=== PATIENT | female | born 1935 | race Caucasian/White ===

== ENCOUNTER 2018-03-21 14:26 | Emergency (ER) | payer OTHER ==
[2018-03-21] MEDS ORDERED: NS 1,000 ML IV ONE (15:27)
[2018-03-21 15:56] LABS: PLATELET COUNT 143 10^3/uL (150-400)
--- NOTE | 2018-03-21 16:11 | EDPHY ---
H & P Stated Complaint: lower abdominal pain, dark stools Time Seen by Provider: 03/21/18 15:27 HPI/ROS: CHIEF COMPLAINT: Lower abdominal pain, dark stools Limitations: Expressive aphasia, daughter provides a clinical history HISTORY OF PRESENT ILLNESS: 82-year-old female with expressive aphasia presents with lower abdominal pain and dark stools. Onset of lower abdominal pain yesterday, associated with 1 episode of dark stools and dizziness today. No fever, vomiting or diarrhea. The patient is unable to explain the character of the pain or if there are other associated symptoms. 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.htn ,breast ca 25 yrs ago,high chol, HTN , non verbal - Social History Smoking Status: Former smoker - Physical Exam Exam: General Appearance: Alert, pleasant Eyes: Pupils equal and round, no conjunctival pallor ENT, Mouth: Mucous membranes moist Neck: Normal inspection Respiratory: Lungs are clear to auscultation Cardiovascular: Regular rate and rhythm Gastrointestinal: Abdomen is soft, diffuse tenderness, especially left lower quadrant Rectal: Light brown stool, no gross blood, no fecal impaction Neurological: Alert, expressive aphasia, right-sided weakness Skin: Warm and dry Extremities: Nontender, no pedal edema Psychiatric: Unable to determine Constitutional: Initial Vital Signs Temperature (C) 37 C 03/21/18 14:31 Heart Rate 58 L 03/21/18 14:31 Respiratory Rate 18 03/21/18 14:31 Blood Pressure 156/77 H 03/21/18 14:31 O2 Sat (%) 96 03/21/18 14:31 O2 Delivery Mode Room Air Allergies/Adverse Reactions: Penicillins Allergy (Verified 03/21/18 14:30) Home Medications: Medication Instructions Recorded Aspirin [Aspirin 325 mg (*)] 325 mg PO DAILY 06/14/16 Atorvastatin Calcium [Lipitor 80 80 mg PO DAILY 06/14/16 mg] Carvedilol [Coreg (*)] 6.25 mg PO BIDMEAL 06/14/16 Cetirizine [ZyrTEC 10 mg (*)] 10 mg PO DAILY 06/14/16 Hydralazine HCl 100 mg PO 06/14/16 traZODone [traZODONE 50MG (*)] 50 mg PO HS 06/14/16 Cephalexin [Keflex (*)] 500 mg PO BID #10 cap 03/21/18 Medical Decision Making - Diagnostics EKG Interpretation: EKG interpreted by me reveals normal sinus rhythm, rate 56, no ST or T segment changes. Interpretation: Normal EKG Imaging Results: Imaging Impressions Abdomen CT 03/21/18 16:28 Impression: 1. Unusual enhancing gastric mucosa. Please see above 2. Possible distal sigmoid and rectal colitis. Results discussed with Kalpana Angelo at 5:51 PM. General information for patients regarding this examination can be found at [email or web address]. If you have questions or comments about this report, please contact me at (hospital) or [phone] (cell). Imaging: Discussed imaging studies w/ call or contact centre team leader Radiologist, I viewed and interpreted images myself ED Course/Re-evaluation: This patient presents with lower abdominal discomfort. Exam reveals left lower quadrant tenderness, concerning for diverticulitis. Stool is negative for occult blood. CT scan of the abdomen pelvis ordered. Urinalysis reveals UTI. Keflex 500 mg orally given and a urine culture was sent. CT scan reveals acute colitis of the sigmoid colon. Results discussed with the patient and her daughter. Abdominal exam remains benign. Tolerating oral fluids well and no evidence of GI hemorrhage. Warning signs discussed. Will follow up with Fatou Boyd. Differential Diagnosis: Differential diagnosis includes though it is not limited to appendicitis, cholecystitis, diverticulitis, pyelonephritis, bowel perforation, small bowel obstruction. - Data Points Laboratory Results: Laboratory Results 03/21/18 15:44 03/21/18 15:44 03/21/18 03/21/18 03/21/18 16:20 16:00 15:44 WBC RBC Hgb Hct MCV MCH MCHC RDW Plt Count MPV Neut % (Auto) Lymph % (Auto) [place] % (Auto) Eos % (Auto) Baso % (Auto) Nucleat RBC Rel Count Absolute Neuts (auto) Absolute Lymphs (auto) Absolute Monos (auto) Absolute Eos (auto) Absolute Basos (auto) Absolute Nucleated RBC Immature Gran % Immature Gran # Sodium Potassium Chloride Carbon Dioxide Anion Gap BUN Creatinine Estimated GFR Glucose Calcium Urine Color MAGAN Urine Appearance HAZY Urine pH 5.0 (5.0-7.5) Ur Specific [place] 1.028 (1.002-1.030) Urine Protein NEGATIVE (NEGATIVE) Urine Ketones NEGATIVE (NEGATIVE) Urine Blood NEGATIVE (NEGATIVE) Urine Nitrate NEGATIVE (NEGATIVE) Urine Bilirubin NEGATIVE (NEGATIVE) Urine Urobilinogen NEGATIVE EU EU (0.2-1.0) Ur Leukocyte Esterase TRACE H (NEGATIVE) Urine RBC 1-3 /hpf /hpf (0-3) Urine WBC 50-182 /hpf H /hpf (0-3) Ur Epithelial Cells TRACE /lpf /lpf (NONE-1+) Urine Mucus 2+ /lpf H /lpf (NONE-1+) Urine Glucose NEGATIVE (NEGATIVE) Stool Occult Bld Scrn NEGATIVE (NEGATIVE) Patient ABO/Rh O POSITIVE Antibody Screen NEGATIVE 03/21/18 03/21/18 15:44 15:44 WBC 8.64 10^3/uL 10^3/uL (3.80-9.50) RBC 4.98 10^6/uL 10^6/uL (4.18-5.33) Hgb 13.2 g/dL g/dL (12.6-16.3) Hct 40.1 % % (38.0-47.0) MCV 80.5 fL L fL (81.5-99.8) MCH 26.5 pg L pg (27.9-34.1) MCHC 32.9 g/dL g/dL (32.4-36.7) RDW 13.1 % % (11.5-15.2) Plt Count 143 10^3/uL L 10^3/uL (150-400) MPV 11.2 fL fL (8.7-11.7) Neut % (Auto) 76.5 % H % (39.3-74.2) Lymph % (Auto) 15.6 % % (15.0-45.0) [place] % (Auto) 5.9 % % (4.5-13.0) Eos % (Auto) 1.6 % % (0.6-7.6) Baso % (Auto) 0.2 % L % (0.3-1.7) Nucleat RBC Rel Count 0.0 % % (0.0-0.2) Absolute Neuts (auto) 6.60 10^3/uL H 10^3/uL (1.70-6.50) Absolute Lymphs (auto) 1.35 10^3/uL 10^3/uL (1.00-3.00) Absolute Monos (auto) 0.51 10^3/uL 10^3/uL (0.30-0.80) Absolute Eos (auto) 0.14 10^3/uL 10^3/uL (0.03-0.40) Absolute Basos (auto) 0.02 10^3/uL 10^3/uL (0.02-0.10) Absolute Nucleated RBC 0.00 10^3/uL 10^3/uL (0-0.01) Immature Gran % 0.2 % % (0.0-1.1) Immature Gran # 0.02 10^3/uL 10^3/uL (0.00-0.10) Sodium 140 mEq/L mEq/L (135-145) Potassium 3.9 mEq/L mEq/L (3.3-5.0) Chloride 106 mEq/L mEq/L (97-110) Carbon Dioxide 25 mEq/l mEq/l (22-31) Anion Gap 9 mEq/L mEq/L (8-16) BUN 16 mg/dL mg/dL (7-23) Creatinine 0.8 mg/dL mg/dL (0.6-1.0) Estimated GFR > 60 Glucose 91 mg/dL mg/dL (70-100) Calcium 9.1 mg/dL mg/dL (8.5-10.4) Urine Color Urine Appearance Urine pH Ur Specific [place] Urine Protein Urine Ketones Urine Blood Urine Nitrate Urine Bilirubin Urine Urobilinogen Ur Leukocyte Esterase Urine RBC Urine WBC Ur Epithelial Cells Urine Mucus Urine Glucose Stool Occult Bld Scrn Patient ABO/Rh Antibody Screen Medications Given: Discontinued Medications Cephalexin HCl (Keflex) 500 mg PO EDNOW ONE PRN Reason: Protocol Stop: 03/21/18 18:11 Last Admin: 03/21/18 18:16 Dose: 500 mg Sodium Chloride (Ns) 1,000 mls @ 0 mls/hr IV EDNOW ONE; Wide Open PRN Reason: Protocol Stop: 03/21/18 15:28 Last Admin: 03/21/18 15:44 Dose: 1,000 mls Departure - Departure Disposition: Home, Routine, Self-Care Clinical Impression: Colitis Urinary tract infection Qualifiers: Urinary tract infection type: acute cystitis Hematuria presence: without hematuria Qualified Code(s): N30.00 - Acute cystitis without hematuria Condition: Good Instructions: Urinary Tract Infection in Women (ED), Colitis (ED) Additional Instructions: Return for worsening symptoms or any concerns. Stay on a bland diet for 5-7 days. Referrals: Abigail Logan MD [Primary Care Provider] - 1-2 days without fail Aric Beyer MD [Medical Doctor] - As per Instructions (Call to make an appointment.) Prescriptions: Cephalexin [Keflex (*)] 500 mg PO BID #10 cap
[2018-03-21] MEDS ORDERED: IOPAMIDOL (ISOVUE-300) 100 ML BTL ONE (16:40)
[2018-03-21 17:25] VITALS: BP 162/81
--- NOTE | 2018-03-21 17:59 | CPEKG ---
Test Reason : OPEN Blood Pressure : / mmHG Vent. Rate : 056 BPM Atrial Rate : 056 BPM P-R Int : 134 ms QRS Dur : 097 ms QT Int : 464 ms P-R-T Axes : 023 -07 047 degrees QTc Int : 448 ms Sinus rhythm Confirmed by Kalpana Angelo ([id number]) on 03/21/2018 5:59:34 PM Referred By: Confirmed By:Kalpana Angelo
[2018-03-21] MEDS ORDERED: CEPHALEXIN 500 MG CAP PO ONE (18:10)
== END 2018-03-21 17:20 | disposition home or self-care (01) ==
DX: K52.9 Noninfective gastroenteritis and colitis, unspecified (principal); N30.00 Acute cystitis without hematuria; Z85.3 Personal history of malignant neoplasm of breast; Z87.891 Personal history of nicotine dependence; I69.920 Aphasia following unspecified cerebrovascular disease
CPT/HCPCS: 74177; 93005; 96360; 99285; Q9967

== ENCOUNTER 2018-04-06 16:04 | Observation (INO) | payer OTHER ==
--- NOTE | 2018-04-06 16:48 | EDPHY ---
HPI/HX/ROS/PE/MDM Narrative: CHIEF COMPLAINT: Abdominal pain HISTORY OF PRESENT ILLNESS: This patient is an 82-year-old female with history of CVA and resultant right- sided weakness and aphasia arriving with her daughter for evaluation of abdominal pain. For several weeks, she has had severe abdominal pain and incontinence of bowels or urgency to have a bowel movement every time she eats. She was evaluated in this emergency department about one week ago for similar symptoms and CT at that time showed inflammation of her intestines. She had a sigmoidoscopy on Thursday at [facility] (results pending). She also had a recent antibiotic treatment with Keflex for UTI. Today, she was going to have a stool test for c-difficile, but she has had such severe pain today that she has not eaten. She has taken Tylenol and tramadol for pain relief. Denies known fever. Endorses nausea. Denies dysuria. She has recently had difficulty with dysphagia and frequently chokes and spits up food. She has followed up regarding this and plan is for barium swallow and endoscopy. Her daughter has noticed frequent coughing. No chills, chest pain, shortness of breath, palpitations, urinary complaints, headache, lightheadedness. HPI primarily obtained through patient's daughter at bedside due to patient's residual deficits from prior CVA 01/2016. REVIEW OF SYSTEMS: A comprehensive 10 system review of systems is otherwise negative aside from elements mentioned in the history of present illness and medical decision making. PAST MEDICAL HISTORY: History of CVA 01/2016, resultant right-sided weakness, aphasia. Hysterectomy. SOCIAL HISTORY: Daughter at bedside. Lives in [place]. Retired. VITAL SIGNS: Reviewed by me GENERAL: Well-developed, well-nourished, resting comfortably in no respiratory distress. HEENT: Atraumatic. Eyes: No icterus, no injection. Mouth: moist mucous membranes. No erythema or lesions. Neck: supple with no adenopathy. LUNGS: Clear to auscultation bilaterally, no wheezes, rhonchi or rales. CARDIAC: Regular rate and rhythm, no rubs, murmurs or gallops. ABDOMEN: Lower abdominal tenderness, LLQ>RLQ. Soft, nondistended. BACK: No CVA tenderness. EXTREMITIES: Weakness and contracture of RUE. No trauma. No edema. NEURO: Alert. Aphasia and right-sided deficits secondary to prior CVA two years ago (01/2016). SKIN: Warm and dry, no rash. PSYCHIATRIC: Normal mentation, no agitation. Portions of this note were transcribed by a medical collector. I personally performed a history, physical exam, medical decision making, and confirmed accuracy of information the transcribed note. ED Course: 82 y/o female with history of CVA and recent diagnosis of colitis by CT presents with abdominal pain and frequent, uncontrollable bowel movements. Exam and history are somewhat limited due the patient's aphasia. Plan for repeat CT. Plan for labs including CBC, chemistries, UA, stool culture. 17:[address] Washington, radiologist. CT abdomen/pelvis shows evidence of worsening colitis, possibly consistent with c-difficile. Plan to administer 50mcg IV fentanyl for pain relief. 19:05 Reassessed. Plan to admit for worsening colitis, abdominal pain. She and her daughter are comfortable with this plan. 19:16 Consulted with hospitalist service. Dr. Hawk accepts admission for abdominal pain, colitis, possible c-difficile. MDM: Diff dx considered included but not limited to cholecystitis, gastritis, pancreatitis, bowel obstruction, colitis, diverticulitis, kidney stones, urinary tract infections and other causes. - Data Points Imaging Results: Imaging Impressions Abdomen CT 04/06/18 17:06 Impression: 1. Worsening colitis extending from the anal verge to the hepatic flexure is worse since two weeks prior. Query Clostridium difficile colitis or other infectious etiology. 2. No focal diverticulitis, abscess, or bowel obstruction. Findings discussed with Emergency Department physician, Shivani Raman M.D., on April 06, 2018 at 1749. Imaging: Discussed imaging studies w/ trade mark attorney Radiologist Laboratory Results: Laboratory Results 04/06/18 16:25 04/06/18 16:25 04/06/18 04/06/18 04/06/18 18:30 16:25 16:25 WBC 7.00 10^3/uL 10^3/uL (3.80-9.50) RBC 5.06 10^6/uL 10^6/uL (4.18-5.33) Hgb 13.4 g/dL g/dL (12.6-16.3) Hct 40.2 % % (38.0-47.0) MCV 79.4 fL L fL (81.5-99.8) MCH 26.5 pg L pg (27.9-34.1) MCHC 33.3 g/dL g/dL (32.4-36.7) RDW 13.2 % % (11.5-15.2) Plt Count 172 10^3/uL 10^3/uL (150-400) MPV 11.8 fL H fL (8.7-11.7) Neut % (Auto) 70.3 % % (39.3-74.2) Lymph % (Auto) 19.1 % % (15.0-45.0) [place] % (Auto) 8.0 % % (4.5-13.0) Eos % (Auto) 1.9 % % (0.6-7.6) Baso % (Auto) 0.4 % % (0.3-1.7) Nucleat RBC Rel Count 0.0 % % (0.0-0.2) Absolute Neuts (auto) 4.92 10^3/uL 10^3/uL (1.70-6.50) Absolute Lymphs (auto) 1.34 10^3/uL 10^3/uL (1.00-3.00) Absolute Monos (auto) 0.56 10^3/uL 10^3/uL (0.30-0.80) Absolute Eos (auto) 0.13 10^3/uL 10^3/uL (0.03-0.40) Absolute Basos (auto) 0.03 10^3/uL 10^3/uL (0.02-0.10) Absolute Nucleated RBC 0.00 10^3/uL 10^3/uL (0-0.01) Immature Gran % 0.3 % % (0.0-1.1) Immature Gran # 0.02 10^3/uL 10^3/uL (0.00-0.10) Sodium 139 mEq/L mEq/L (135-145) Potassium 3.3 mEq/L mEq/L (3.3-5.0) Chloride 105 mEq/L mEq/L (97-110) Carbon Dioxide 28 mEq/l mEq/l (22-31) Anion Gap 6 mEq/L L mEq/L (8-16) BUN 16 mg/dL mg/dL (7-23) Creatinine 0.8 mg/dL mg/dL (0.6-1.0) Estimated GFR > 60 Glucose 89 mg/dL mg/dL (70-100) Calcium 8.8 mg/dL mg/dL (8.5-10.4) Urine Color YELLOW Urine Appearance HAZY Urine pH 6.0 (5.0-7.5) Ur Specific [place] 1.020 (1.002-1.030) Urine Protein TRACE H (NEGATIVE) Urine Ketones TRACE H (NEGATIVE) Urine Blood NEGATIVE (NEGATIVE) Urine Nitrate NEGATIVE (NEGATIVE) Urine Bilirubin NEGATIVE (NEGATIVE) Urine Urobilinogen 0.2 EU EU (0.2-1.0) Ur Leukocyte Esterase TRACE H (NEGATIVE) Urine RBC NONE SEEN /hpf /hpf (0-3) Urine WBC 0-1 /hpf /hpf (0-3) Ur Epithelial Cells 1+ /lpf /lpf (NONE-1+) Amorphous Sediment 1+ /hpf /hpf (NONE-1+) Urine Bacteria TRACE /hpf H /hpf (NONE SEEN) Urine Mucus 4+ /lpf H /lpf (NONE-1+) Urine Glucose NEGATIVE (NEGATIVE) Medications Given: Potassium Chloride/Dextrose/Sod Cl (D5w 1/2 Ns W/ 20 Kcl/L) 1,000 mls @ 75 mls/ hr IV CONT LISSETH Stop: 10/03/18 20:29 Last Admin: 04/06/18 23:24 Dose: 1,000 mls Discontinued Medications Fentanyl (Sublimaze) 50 mcg IVP EDNOW ONE Stop: 04/06/18 19:09 Last Admin: 04/06/18 19:17 Dose: Not Given Sodium Chloride (Ns) 1,000 mls @ 0 mls/hr IV ONCE ONE; Wide Open PRN Reason: Protocol Stop: 04/06/18 18:36 Last Admin: 04/06/18 19:14 Dose: 1,000 mls General Time Seen by Provider: 04/06/18 16:24 Initial Vital Signs: Initial Vital Signs Temperature (C) 36.7 C 04/06/18 16:09 Heart Rate 65 04/06/18 16:09 Respiratory Rate 18 04/06/18 16:09 Blood Pressure 133/57 H 04/06/18 16:09 O2 Sat (%) 95 04/06/18 16:09 O2 Delivery Mode Room Air Allergies/Adverse Reactions: egg Allergy (Verified 04/10/18 21:21) Unknown Penicillins Allergy (Verified 04/11/18 10:55) Unknown shellfish derived Allergy (Verified 04/11/18 10:55) Unknown Home Medications: Medication Instructions Recorded Aspirin [Aspirin 325 mg (*)] 325 mg PO HS 06/14/16 Cetirizine [ZyrTEC 10 mg (*)] 10 mg PO DAILY PRN 06/14/16 Atorvastatin Calcium [Lipitor 40 40 mg PO HS 04/06/18 mg (*)] Escitalopram Oxalate [Lexapro] 20 mg PO HS 04/06/18 Acetaminophen [Tylenol 325mg (*)] 650 mg PO Q6 PRN tab 04/08/18 Vancomycin HCl 250 mg PO QID #40 capsule 04/08/18 Carvedilol [Coreg (*)] 6.25 mg PO DAILY 04/11/18 Hyoscyamine Sulfate [Levsin, 0.125 mg SL Q4H PRN 04/11/18 Hyomax-Sl 0.125 mg (*)] hydrALAZINE [Apresoline] 25 mg PO QIDMEAL 04/11/18 Departure - Departure Disposition: [facility] In[facility] Acute Clinical Impression: Colitis, Possible c-difficile Abdominal pain Qualifiers: Abdominal location: generalized Qualified Code(s): R10.84 - Generalized abdominal pain Condition: Good Report Scribed for: Shivani Raman Report Scribed by: Amita Greenwood Date of Report: 04/06/18 Time of Report: 19:58
[2018-04-06 17:01] LABS: PLATELET COUNT 172 10^3/uL (150-400)
[2018-04-06] MEDS ORDERED: IOPAMIDOL (ISOVUE-300) 100 ML BTL ONE (17:22)
[2018-04-06] MEDS ORDERED: NS 1,000 ML IV ONE (18:35)
[2018-04-06] MEDS ORDERED: fentaNYL 100 MCG/2 ML INJ IVP ONE (19:08)
[2018-04-06] MEDS ORDERED: ONDANSETRON 4 MG/2 ML VIAL IVP PRN (20:18)
[2018-04-06] MEDS ORDERED: oxyCODONE IR 5 MG TAB PO PRN (20:18)
[2018-04-06] MEDS ORDERED: ACETAMINOPHEN 325 MG TAB PO PRN (20:18)
--- NOTE | 2018-04-06 20:32 | GHP ---
DATE OF ADMISSION: 04/06/2018 CHIEF COMPLAINT: Abdominal pain and diarrhea. HISTORY OF PRESENT ILLNESS: This is an 82-year-old female with history of expressive aphasia after a CVA in 2016 who has been having diarrhea and abdominal pain over the past few weeks. She was seen i n the emergency room on 03/21/2018, for lower abdominal pain where a CT scan was done and she was ult imately diagnosed with a urinary tract infection and started on cephalexin. The CT scan did show acu te colitis of the sigmoid colon. Subsequently she was referred to Gastroenterology where she had a s igmoidoscopy done last Thursday. Over the past few days, she has been unable to eat since every time she eats she has diarrhea. She d enies any fevers or chills. She denies any vomiting. Today, she had excruciating lower quadrant abd ominal pain which brought her to the emergency department. PAST MEDICAL HISTORY: 1. CVA in January of 2016 with residual speech deficits as well as right-sided weakness. 2. Breast cancer 25 years ago. 3. Hypercholesterolemia. 4. Hypertension. PAST SURGICAL HISTORY: Denies. HOME MEDICATIONS: Reviewed. Refer to [employer] for details. ALLERGIES: Penicillin. SOCIAL HISTORY: The patient lives in [facility] with her family. She is a former smoker. She de nies any alcohol or illicit drug use. FAMILY HISTORY: Reviewed and noncontributory. REVIEW OF SYSTEMS: Comprehensive 10-point review of systems was done and is negative, except for as mentioned in HPI. PHYSICAL EXAM: VITAL SIGNS: Blood pressure 142/68, pulse is 70, respiratory rate 20, O2 saturation 95% on room air. Temperature afebrile. GENERAL: No acute distress. HEAD: Normocephalic, atraumat ic. EYES: PERRLA. Sclerae anicteric. MOUTH: Moist mucous membranes. NECK: Supple. No lymphade nopathy. CARDIOVASCULAR: S1, S2. No murmurs, rubs, clicks, gallops. No JVD. No lower extremity e gary. PULMONARY: Lungs are clear. No wheezes, rales, or rhonchi. ABDOMEN: There is some tenderne ss to deep palpation in the left lower quadrant. Otherwise soft. Bowel sounds are hyperactive. EXT REMITIES: No clubbing or cyanosis. NEURO: Speech is not fluent. She has right-sided weakness. SK IN: Clear. No rashes. DIAGNOSTICS: WBC 7, hemoglobin 13.4, hematocrit 40.2, platelets 172. Sodium 139, potassium 3.3, chl oride 105, CO2 28, BUN 16, creatinine 0.8, glucose 89. Stool occult blood from 03/21/2018, was negat baldemar. CT of the abdomen done today shows worsening colitis extending from the anal verge to the hepat ic flexure. There is no focal diverticulitis, abscess, or bowel obstruction. ASSESSMENT AND PLAN: This is an 82-year-old female, with reported chronic diarrhea presenting with: 1. Left lower quadrant abdominal pain and worsening diarrhea in the setting of a CT consistent with worsening colitis. Plan: At this time, a stool PCR pathogen panel is pending. Will defer starting empiric antibiotics until these results are back. I have a call in to Dr. Walker from GI of the [facility] to see if he has any further records or results from her recent endoscopy done last week. 2. Recently treated urinary tract infection with Keflex. Plan: It is possible that the Keflex may have precipitated a bout of C difficile colitis. Will hold Keflex for now. The patient will be placed in observation. The patient requests to be DNR status. /[id number]/MODL
[2018-04-06] MEDS: D5W 1/2 NS W/ 20 KCl/L 1,000 ML IV SCH (23:24)
[2018-04-07 05:35] LABS: PLATELET COUNT 150 10^3/uL (150-400)
[2018-04-07] MEDS ORDERED: CETIRIZINE 10 MG TAB PO PRN (06:21)
[2018-04-07] MEDS: ENOXAPARIN 40 MG/0.4 ML SYR SC SCH (09:35)
--- NOTE | 2018-04-07 10:24 | GCON ---
GASTROENTEROLOGY INPATIENT CONSULTATION DATE OF CONSULTATION: 04/07/2018 I was kindly requested to see the patient by Dr. Sigifredo Hawk in consultation for a chief complaint of diarrhea. She is an 82-year-old white female, who began to have the above several weeks ago. She has diarrhea every time she tries to eat, and as a result, has had decreased oral intake. With the diarrhea, she has had some crampy lower quadrant abdominal pain. She presented to the emergency department, and was admitted. On March 21, she presented to the emergency department with lower abdominal pain, and was diagnosed with a UTI, and started on cephalexin. A CT scan was done during that presentation, which showed some possible inflammation of the left colon. On September 02, she underwent a flexible sigmoidoscopy by my partner, Dr. Jorge Ravi, where she received 100 mcg of fentanyl and 4 mg of Versed. Scattered erythema, inflammation, and exudate were seen in the rectum and sigmoid. Biopsies were performed. I spoke with the pathologist today, and she states they are most consistent with an acute infectious etiology. They are not consistent with inflammatory bowel disease, microscopic colitis, etc. No pseudomembranes, etc., to suggest C difficile. PAST MEDICAL HISTORY: 1. As above. 2. CVA in January of 2016, leaving her with some residual speech deficit as well as right-sided weakness. 3. Breast cancer 25 years ago. 4. Elevated cholesterol. 5. Hypertension. 6. Otherwise, noncontributory inpatient. INPATIENT MEDICATIONS: Include IV fluids, Lipitor, Lovenox, and Lexapro. SOCIAL HISTORY: She denies alcohol. She is a DNR. She lives in [facility] with her family. FAMILY HISTORY: Negative for similar diarrhea. REVIEW OF SYSTEMS: Positive pertinent review of systems as per HPI. Otherwise , complete review of systems is negative. PHYSICAL EXAM: CONSTITUTIONAL: Nontoxic-appearing woman. VITAL SIGNS: Stable. SKIN: Warm, dry. EYES: Pupils equal, round and reactive to light and accommodation. EARS, NOSE, MOUTH, AND THROAT: Oropharynx without masses, moist mucosa. CARDIOVASCULAR: Normal S2. Normal PMI. RESPIRATORY: Lungs clear to auscultation and percussion anteriorly. GASTROINTESTINAL: Abdomen soft, without masses felt. NEUROLOGIC: Right-sided weakness, with expressive aphasia. PSYCHIATRIC: Orientation, insight appear appropriate. MUSCULOSKELETAL: Right-sided weakness, normal station. LABORATORIES: Include a repeat CT scan of the abdomen and pelvis, which shows colonic wall thickening from the anal verge to the hepatic flexure, which could be consistent with inflammation. It is somewhat worse than her prior CT. Hematocrit 37.8%. Platelet count 150,000. Urinalysis negative. Normal liver function tests. Normal basic metabolic panel. ASSESSMENT: Diarrhea, with some secondary crampy lower abdominal pain. This certainly represents a subacute infectious colitis. In turn, with the duration being several weeks, almost certainly due to a community-acquired virus. Prolonged bacterial colitis is possible, but less likely. C difficile is also possible, but also much less likely. No evidence based on her history, flexible sigmoidoscopy and pathology of ulcerative colitis, Crohn's, microscopic colitis, etc. PLAN: 1. Supportive care, including IV fluids. 2. Time. 3. Agree with light diet for now. If she tolerates, can advance to a cardiac diet, with low dairy, low fiber. 4. Agree with stool for GI pathogen, including C difficile. 5. Will begin routine Imodium, 2 tablets twice a day; hold for constipation. Thank you for allowing me to help in the management of this patient. /[id number]/MODL MTDD
--- NOTE | 2018-04-07 10:48 | HOSPPROG ---
Hospitalist Progress Note Assessment/Plan: Constantin is an 82 y/o who presented to the ER with left lower quadrant abdominal pain, diarrhea. Today is my first encounter with the patient, chart reviewed. *left lower quadrant abdominal pain, possibly a subacute infectious colitis -no stool studies at this time -CT of the abdomen shows worsening colitis extending from the anal verge to the hepatic flexure. There is no focal diverticulitis, abscess, or bowel obstruction. -appreciate GI seeing her -light diet for now, low fiber -she had a flexible sigmoidoscopy in the past and had no pathology of ulcerative colitis, Crohn's, ec -will advance her diet slowly to see how she does -has had no further episodes w diarrhea since being admitted *hx of CVA w difficulty w speech -concerns w swallowing -ST to see -PT & OT in addition *recent UTI -was treated w Keflex -initial concern was poss c diff, but no diarrhea at this time *Plan: will check on her this afternoon to see if she is eating and drinking. Will see how her abdominal pain is. J Subjective: Constantin grimaces and nods when her left lower quadrant is palpated. Her speech is garbled but communicates well w her eyes and non verbally. Objective: Vital Signs Temp Pulse Resp BP Pulse Ox 36.7 C 53 L 14 112/57 L 95 04/07/18 08:00 04/07/18 08:00 04/07/18 08:00 04/07/18 08:00 04/07/18 08:00 Laboratory Results 04/07/18 04:59 04/07/18 04:59 04/06/18 04/07/18 04/08/18 05:59 05:59 05:59 Intake Total 1485 Balance 1485 - Physical Exam Constitutional: uncomfortable Eyes: PERRL Ears, Nose, Mouth, Throat: hard of hearing Cardiovascular: regular rate and rhythym Respiratory: no respiratory distress Gastrointestinal: normoactive bowel sounds, tenderness (llq and rlq) Skin: warm Musculoskeletal: generalized weakness Psychiatric: interacting appropriately ICD10 Worksheet Patient Problems: Problems Problem Status Onset Abdominal pain Acute Colitis Acute
--- NOTE | 2018-04-07 17:19 | ASMTCMCOM ---
CM Note CM Note Notes: Pt is a 82 y/o female admitted for abdominal pain and diarrhea. Pt had a CVA in January of 2016 which left her w/ speech deficits as well as right sided weakness. Pt lives w/ her family in [facility]. GI has been consulted. Therapies have been ordered and awaiting recommendations. Needs are TBD at this time. CM to follow. Plan: TBD Date Signed: 04/07/2018 10:37 AM Electronically Signed By:KELBY Carrillo
[2018-04-07] MEDS: LOPERAMIDE HCL 2 MG CAP PO SCH ×2 (17:49→21:57)
[2018-04-07] MEDS ORDERED: ESCITALOPRAM OXALATE 10 MG TAB PO SCH (21:00)
[2018-04-07] MEDS ORDERED: ATORVASTATIN CALCIUM 40 MG TAB PO SCH (21:00)
[2018-04-07] MEDS: D5W 1/2 NS W/ 20 KCl/L 1,000 ML IV SCH (23:30)
[2018-04-08] MEDS ORDERED: LOPERAMIDE HCL 2 MG CAP PO PRN (08:17)
--- NOTE | 2018-04-08 08:20 | SOAPPROG ---
SOAP Progress Note Assessment/Plan: Assessment/Plan: Diarrhea, almost certainly due to c. diff. Only one b.m. yesterday, without imodium. - agree with yosvany; of note, once completed therapy, she does not need a repeat c. diff to insure eradication (will stay positive for quite some time) - change imodium to prn Will sign off; please call if we can be of further help in the future [phone]). Thanks! 04/08/18 15:15 Subjective: cc: diarrhea Just one b.m./last 24 hrs. No rigors, chills, sweats. Objective: Vital Signs Temp Pulse Resp BP Pulse Ox 36.9 C 58 L 14 134/63 H 89 L 04/08/18 07:40 04/08/18 07:40 04/08/18 07:40 04/08/18 07:40 04/08/18 07:40 Microbiology 04/07/18 20:32 Gastrointestinal Tract Panel (PCR) - Final Stool Clostridium Difficile Detected Laboratory Results 04/07/18 04:59 04/07/18 04:59 04/07/18 04/08/18 04/09/18 05:59 05:59 05:59 Intake Total 1485 300 Output Total 60 Balance 1485 240 c. diff positive. Physical Exam - Physical Exam General Appearance: WD/WN, alert, no apparent distress EENT: PERRL/EOMI, normal ENT inspection, pharynx normal, TMs normal Neck: non-tender, full range of motion, supple, normal inspection Respiratory: chest non-tender, lungs clear, normal breath sounds Cardiac/Chest: normal peripheral pulses, regular rate, rhythm Peripheral Pulses: 2+: carotid (R), carotid (L), femoral (R), femoral (L), dorsalis-pedis (R), dorsalis-pedis (L) Abdomen: normal bowel sounds, non-tender, soft Pelvic Exam: deferred Rectal: deferred Back: Normal inspection Skin: normal color, warm/dry Lymphatic: no adenopathy Extremities: normal range of motion, non-tender, normal inspection, normal capillary refill Neuro/Psych: no motor/sensory deficits, alert, normal mood/affect, oriented x 3 ICD10 Worksheet Patient Problems: Problems Problem Status Onset Abdominal pain Acute Colitis Acute
[2018-04-08] MEDS: ENOXAPARIN 40 MG/0.4 ML SYR SC SCH (08:33)
--- NOTE | 2018-04-08 10:01 | PDIAF ---
- Diagnosis Diagnosis: cdiff Code Status: Do Not Resuscitate - Medication Management Discharge Medications: Medications to Continue on Transfer Aspirin [Aspirin 325 mg (*)] 325 mg PO HS 06/14/16 [Last Taken Unknown] Cetirizine [ZyrTEC 10 mg (*)] 10 mg PO DAILY PRN 06/14/16 [Last Taken Unknown] Atorvastatin Calcium [Lipitor 40 mg (*)] 40 mg PO HS 04/06/18 [Last Taken Unknown] Escitalopram Oxalate [Lexapro] 20 mg PO HS 04/06/18 [Last Taken Unknown] Acetaminophen [Tylenol 325mg (*)] 650 mg PO Q6 PRN tab 04/08/18 [Last Taken Unknown] Vancomycin [Vancocin Oral Liquid] 250 mg PO QID #40 cap 04/08/18 [Last Taken Unknown] Discharge Medications: Refer to the Discharge Home Medication list for PRN reason. PICC Care - Routine: N/A - Orders Services needed: Home Care, Registered Nurse, Physical Therapy, Occupational Therapy Home Care Face to Face: I certify that this patient was under my care and that I had the required [id number] encounter meeting the encounter requirements on the discharge day. My findings support the fact that the patient is homebound as defined in Home Care Face to Face Continued: CMS Chapter 7 Medicare Benefits Manual 30.1.1 , The condition of the patient is such that there exists a normal inability to leave home and consequently, leaving home would require a considerable and taxing effort. Isolation Type: CDIFF Isolation Diet Recommendation: no restrictions on diet Diet Texture: Regular Texture Diet, Thin Liquids, Meds Whole in Puree - Labs/Radiology BMP Date: 04/12/18 - Follow Up Care Current Providers and Referrals: Abigail Logan MD [Primary Care Provider] - As per Instructions
[2018-04-08 11:22] VITALS: BP 125/65
--- NOTE | 2018-04-08 11:23 | ASMTLACE ---
LACE Length of stay for Answers: 2 days current admission Acuity / Level of Answers: Yes Care: Did the patient have an inpatient admission? Comorbidities - select Answers: Cerebrovascular disease all that apply (CVA, TIA, aneurysms, vasc ular dementia) Other Notes: HTN, HLD, # of Emergency department Answers: 3-4 visits in the last 6 months Score: 10 Date Signed: 04/08/2018 11:18 AM Electronically Signed By:Trisha Galvez
--- NOTE | 2018-04-08 11:53 | ASMTDCNOTE ---
Case Management Discharge Discharge Order Complete? Answers: Yes Patient to Obtain Answers: via Family Medications Transportation Arranged Answers: Family/Friends Agency/Facility Transfer Answers: Yes Report Printed & Faxed to Receiving Agency Family Notified Answers: Yes Notes: Daughter Discharge Comments Notes: Pt to discharge home with [facility] RN, PT, OT support. Pt's home address is [address] [place] [address]. [address] [place] [address]. Apartment is difficult to find. Daughter Aliza states [facility] should call her for directions. GPS will get you lost. Her number is [phone]. Family is aware that [facility] does not have staff available until Thursday and is fine with that scenario. No further CM needs noted at this time. Date Signed: 04/08/2018 11:46 AM Electronically Signed By:Trisha Galvez
--- NOTE | 2018-04-08 11:53 | ASDISCHSUM ---
Discharge Information Plan Status:Home with Home Health Medically Cleared to Leave:04/08/2018 Discharge Date:04/08/2018 CM D/C Disposition:Home Health Service ADT D/C Disposition:Home Health Service Projected Discharge Date:04/08/2018 11:00 AM Transportation at D/C:Family Discharge Delay Reason: Follow-Up Date:04/08/2018 11:00 AM Discharge Slot: Final Diagnosis:c diff Placement Information Referral Type:*Home Health Care Services Referral ID:[id number] Provider Name:[facility] Address 1:[address] [facility] [address] Address 2: City:[place] Selection Factors: State:[place] Patient Contact Information Contact Name:GABRIELLE Relationship:Daughter Address:[address] Work Phone: City:[place] Alternate Phone: State/Zip Code:[place] [address] Email: Financial Information Financial Class:Medicare Advantage Plans Primary Plan Desc:[employer] MED[employer]ARE ADV Primary Plan Number:[id number] Secondary Plan Desc: Secondary Plan Number: Assessment Information [facility] CM Progress Note CM Note CM Note Notes: Pt is a 82 y/o female admitted for abdominal pain and diarrhea. Pt had a CVA in January of 2016 which left her w/ speech deficits as well as right sided weakness. Pt lives w/ her family in [facility]. GI has been consulted. Therapies have been ordered and awaiting recommendations. Needs are TBD at this time. CM to follow. Plan: TBD Date Signed: 04/07/2018 10:37 AM Electronically Signed By:KELBY Carrillo LACE LACE Length of stay for Answers: 2 days current admission Acuity / Level of Answers: Yes Care: Did the patient have an inpatient admission? Comorbidities - select Answers: Cerebrovascular disease all that apply (CVA, TIA, aneurysms, vasc ular dementia) Other Notes: HTN, HLD, # of Emergency department Answers: 3-4 visits in the last 6 months Score: 10 Date Signed: 04/08/2018 11:18 AM Electronically Signed By:Trisha Galvez Case Management Discharge Plan Note Case Management Discharge Discharge Order Complete? Answers: Yes Patient to Obtain Answers: via Family Medications Transportation Arranged Answers: Family/Friends Agency/Facility Transfer Answers: Yes Report Printed & Faxed to Receiving Agency Family Notified Answers: Yes Notes: Daughter Discharge Comments Notes: Pt to discharge home with [facility] RN, PT, OT support. Pt's home address is [address] [place] [address] [address] [place] [address]. Apartment is difficult to find. Daughter Aliza states [facility] should call her for directions. GPS will get you lost. Her number is [phone]. Family is aware that [facility] does not have staff available until Thursday and is fine with that scenario. No further CM needs noted at this time. Date Signed: 04/08/2018 11:46 AM Electronically Signed By:Trisha Galvez Intervention Information
[2018-04-08] MEDS ORDERED: VANCOMYCIN 125 MG/2.5 ML UDL PO SCH (12:00)
--- NOTE | 2018-04-08 12:34 | ASMTCMCOM ---
CM Note CM Note Notes: Pt's daughter significant emotional distress upon discharge explaining that pt has behavioral tantrums when she does not get her way and dtr is increasingly unable to cope with pt's outbursts and obstinance. CM directed dtr to Gosia Dominguez RN, clinical coordinator at the pt's primary care office and also left a message for Gosia Dominguez RN regarding family's need for social work intervention, behavior plan help, day programs, and private duty care. CM also left a message for dtr including contact info for private duty agencies. No further CM needs noted at this time. Date Signed: 04/08/2018 12:20 PM Electronically Signed By:Trisha Galvez
--- NOTE | 2018-04-08 12:42 | GDS ---
DISCHARGE DIAGNOSES: Clostridium difficile. CONSULTATIONS: Dr. Tovar of Gastroenterology. STUDIES AND PROCEDURES DONE: CT of the abdomen. PHYSICAL EXAM: GENERAL: The patient is alert. VITAL SIGNS: Afebrile at 36.8, pulse 55. Respirato ry rate is 12. Blood pressure is 125/65. She is saturating 91% on room air. I have seen and evaluated the patient on the day of discharge. HOSPITAL COURSE: The patient is an 82-year-old female who presents to the hospital with complaints o f quadrant pain. She was evaluated and diagnosed with: 1. Left lower quadrant abdominal pain. This is in the setting of Clostridium difficile. She did re ceive a consultation from Gastroenterology. She has been initiated on oral vancomycin and will diane nue this in the outpatient setting. 2. Diarrhea; this has improved. 3. History of cerebrovascular accident. The patient is at her baseline with regard to this. 4. Recent urinary tract infection. She was treated with Keflex in the outpatient setting, with no s igns of further infectious process. DISPOSITION: The patient will be discharged home with her daughter and home health care. There are no pending studies. DISCHARGE MEDICATIONS: Please refer to EMR form. I have provided the patient a prescription for van comycin. I have not adjusted any of her other previously prescribed home medications to the best of my knowledge. I spent greater than 35 minutes in the care, coordination, and management of the patient's dispositio n. /[id number]/MODL
== END 2018-04-08 12:10 | disposition home health service (06) ==
LOC: INTOOBSV 19:08 → OBSVTOIN 19:08 → F3E 20:15
PROVIDERS: ADMIT Family Medicine; ATTEND Family Medicine
DX: A04.72 Enterocolitis due to Clostridium difficile, not specified as recurrent (principal); E86.9 Volume depletion, unspecified; I69.320 Aphasia following cerebral infarction; I69.351 Hemiplegia and hemiparesis following cerebral infarction affecting right dominant side; Z85.3 Personal history of malignant neoplasm of breast; I10 Essential (primary) hypertension; E78.00 Pure hypercholesterolemia, unspecified; Z66 Do not resuscitate
CPT/HCPCS: 74177; 92523; 92610; 96360; 97162; 97166; 97530; 99285; G0378; G8978; G8979; G8980; G8987; G8988; G8996; G8997; G8998; G9162; G9163; J1650; Q9967

== ENCOUNTER 2018-04-10 21:13 | Inpatient (IN) | payer OTHER ==
--- NOTE | 2018-04-10 22:02 | EDPHY ---
H & P Stated Complaint: Pt is taking vancomycin and now having redness and right cheek swelling Time Seen by Provider: 04/10/18 22:02 HPI/ROS: HPI CHIEF COMPLAINT: Facial redness, swelling, pain HISTORY OF PRESENT ILLNESS: 82-year-old female, presents emergency room with right-sided facial swelling, redness and pain. This progressively started yesterday and has progressed over the past 24 hr. Getting worse. No fever. She is currently on oral vancomycin for C diff. Past Medical History: Current active C diff on oral vancomycin. History of CVA , recurrent UTI. Past Surgical History: No recent surgery Social History: Lives locally, family at bedside. Family History: Noncontributory ROS REVIEW OF SYSTEMS: 10 Systems were reviewed and negative with the exception of the elements mentioned in the history of present illness. Exam Constitutional triage nursing summary reviewed, vital signs reviewed, awake/ alert. Eyes normal conjunctivae and sclera, EOMI, PERRLA. HENT face: Right-sided facial redness and swelling consistent with most likely has cellulitis, normal inspection, atraumatic, moist mucus membranes, no epistaxis, neck supple/ no meningismus, no raccoon eyes. Respiratory clear to auscultation bilaterally, normal breath sounds, no respiratory distress, no wheezing. Cardiovascular rate normal, regular rhythm, no murmur, no edema, distal pulses normal. Gastrointestinal soft, non-tender, no rebound, no guarding, normal bowel sounds, no distension, no pulsatile mass. Genitourinary no CVA tenderness. Musculoskeletal no midline vertebral tenderness, full range of motion, no calf swelling, no tenderness of extremities, no meningismus, good pulses, neurovascularly intact. Skin pink, warm, & dry, no rash, skin atraumatic. Neurologic awake, alert and oriented x 3, AAOx3, moves all 4 extremities equally, motor intact, sensory intact, CN II-XII intact, normal cerebellar, normal vision, normal speech. Psychiatric normal mood/affect. Heme/Lymph/Immune no lymphadenopathy. Differential Diagnosis: Includes but is not limited to in a particular order facial cellulitis, bacteremia, sepsis Medical Decision Making: Plan for this patient IV establishment, blood cultures , lactic acid, CBC chemistry, CT facial scan with IV contrast. Re-evaluation: CT FACE with IV contrast show Facial cellulitis. No abscess. Called to me Dr. Street. This shows facial cellulitis on C T. But no abscess. This patient need to be admitted to the hospitalist service given the history of generalized weakness, dehydration, acute diarrhea with C diff, and severe electrolyte disturbance including hypokalemia, hypo magnesium, hypocalcemia Source: Patient - Personal History Current Tetanus/Diphtheria Vaccine: Unsure Current Tetanus Diphtheria and Acellular Pertussis (TDAP): Unsure - Medical/Surgical History Hx Asthma: No Hx Chronic Respiratory Disease: No Hx Diabetes: No Hx Cardiac Disease: Yes Hx Renal Disease: No Hx Cirrhosis: No Hx Alcoholism: No Hx HIV/AIDS: No Hx Splenectomy or Spleen Trauma: No Other PMH: .cva 01/2016 speech residuals.htn ,breast ca 25 yrs ago,high chol, HTN , non verbal,CDIFF - Social History Smoking Status: Former smoker Constitutional: Initial Vital Signs Temperature (C) 36.3 C 04/10/18 21:17 Heart Rate 94 04/10/18 21:17 Respiratory Rate 16 04/10/18 21:17 Blood Pressure 148/84 H 04/10/18 21:17 O2 Sat (%) 94 04/10/18 21:17 O2 Delivery Mode Room Air Allergies/Adverse Reactions: egg Allergy (Verified 04/10/18 21:21) Unknown Penicillins Allergy (Verified 04/11/18 10:55) Unknown shellfish derived Allergy (Verified 04/11/18 10:55) Unknown Home Medications: Medication Instructions Recorded Aspirin [Aspirin 325 mg (*)] 325 mg PO HS 06/14/16 Cetirizine [ZyrTEC 10 mg (*)] 10 mg PO DAILY PRN 06/14/16 Atorvastatin Calcium [Lipitor 40 40 mg PO HS 04/06/18 mg (*)] Escitalopram Oxalate [Lexapro] 20 mg PO HS 04/06/18 Acetaminophen [Tylenol 325mg (*)] 650 mg PO Q6 PRN tab 04/08/18 Vancomycin HCl 250 mg PO QID #40 capsule 04/08/18 Carvedilol [Coreg (*)] 6.25 mg PO DAILY 04/11/18 Hyoscyamine Sulfate [Levsin, 0.125 mg SL Q4H PRN 04/11/18 Hyomax-Sl 0.125 mg (*)] hydrALAZINE [Apresoline] 25 mg PO QIDMEAL 04/11/18 Medical Decision Making - Data Points Laboratory Results: Laboratory Results 04/10/18 23:00 04/10/18 23:00 Medications Given: Acetaminophen (Tylenol) 650 mg PO Q4HRS PRN PRN Reason: Pain, Mild/Fever, Can Take PO Stop: 10/08/18 00:38 Last Admin: 04/11/18 02:59 Dose: 650 mg Aspirin (Aspirin) 325 mg PO HS [facility] Stop: 10/08/18 20:59 Last Admin: 04/11/18 20:07 Dose: 325 mg Atorvastatin Calcium (Lipitor) 40 mg PO HS [facility] Stop: 10/08/18 20:59 Last Admin: 04/11/18 20:07 Dose: 40 mg Carvedilol (Coreg) 6.25 mg PO DAILY [facility] Stop: 10/08/18 11:44 Last Admin: 04/11/18 15:03 Dose: 6.25 mg Enoxaparin Sodium (Lovenox) 40 mg SC DAILY [facility]1983 Stop: 10/08/18 08:59 Last Admin: 04/11/18 07:48 Dose: 40 mg Escitalopram Oxalate (Lexapro) 20 mg PO [facility] Stop: 10/08/18 20:59 Last Admin: 04/11/18 20:07 Dose: 20 mg Hydralazine HCl (Apresoline) 25 mg PO QIDMEAL [facility]1983 Stop: 10/08/18 11:59 Last Admin: 04/12/18 00:51 Dose: Not Given Cefazolin Sodium/Dextrose (Ancef 1 Gm (Premix)) 50 mls @ 200 mls/hr IV Q8HRS [facility]1983 PRN Reason: Protocol Stop: 05/11/18 12:59 Last Admin: 04/11/18 23:23 Dose: 50 mls Vancomycin HCl (Vancocin Oral Liquid) 250 mg PO QID [facility] Stop: 05/11/18 12:14 Last Admin: 04/11/18 20:07 Dose: 250 mg Discontinued Medications Sodium Chloride (Ns) 1,000 mls @ 0 mls/hr IV EDNOW ONE; Wide Open PRN Reason: Protocol Stop: 04/10/18 22:10 Last Admin: 04/10/18 22:41 Dose: 1,000 mls Magnesium Sulfate (Magnesium Sulf 2 Gm (Premix)) 50 mls @ 50 mls/hr IV EDNOW ONE Stop: 04/11/18 01:07 Last Admin: 04/11/18 04:19 Dose: Not Given Cefazolin Sodium/Dextrose (Ancef 2 Gm) 100 mls @ 200 mls/hr IV EDNOW ONE PRN Reason: Protocol Stop: 04/11/18 00:46 Last Admin: 04/11/18 03:18 Dose: 100 mls Potassium Chloride (Potassium Cl 10 Meq (Premix)) 100 mls @ 100 mls/hr IV Q1H LISSETH Stop: 04/11/18 02:44 Last Admin: 04/11/18 05:25 Dose: 100 mls Magnesium Sulfate (Magnesium Sulf 2 Gm (Premix)) 50 mls @ 50 mls/hr IV ONCE ONE Stop: 04/11/18 04:29 Last Admin: 04/11/18 04:19 Dose: 50 mls Calcium Gluconate (Calcium Gluconate 1 Gm (Premix)) 50 mls @ 100 mls/hr IV ONCE ONE Stop: 04/11/18 14:59 Last Admin: 04/11/18 15:08 Dose: Not Given Calcium Gluconate 1 gm/ (Dextrose) 60 mls @ 120 mls/hr IV ONCE ONE Stop: 04/11/18 15:29 Last Admin: 04/11/18 15:12 Dose: 60 mls Potassium Chloride (Potassium Cl 20 Meq (Premix)) 50 mls @ 25 mls/hr IV ONCE ONE Stop: 04/12/18 00:38 Last Admin: 04/11/18 23:23 Dose: 50 mls Potassium Chloride (Klor Packets) 40 meq PO EDNOW ONE Stop: 04/10/18 23:40 Last Admin: 04/11/18 02:48 Dose: Not Given Potassium Chloride (Klor-Con) 40 meq PO ONCE ONE Stop: 04/11/18 01:15 Last Admin: 04/11/18 01:28 Dose: 40 meq Potassium Chloride (Klor-Con) 30 meq PO ONCE ONE PRN Reason: Protocol Stop: 04/11/18 10:51 Last Admin: 04/11/18 14:55 Dose: 30 meq Vancomycin HCl (Vancocin Oral Liquid) 250 mg PO QID LISSETH PRN Reason: Protocol Stop: 05/11/18 05:59 Last Admin: 04/11/18 16:33 Dose: Not Given Departure - Departure Disposition: [facility] Acute Clinical Impression: Generalized weakness, Dehydration, Hypokalemia, Facial cellulitis Diarrhea Qualifiers: Diarrhea type: infectious Qualified Code(s): A09 - Infectious gastroenteritis and colitis, unspecified Condition: Fair
[2018-04-10] MEDS ORDERED: NS 1,000 ML IV ONE (22:09)
[2018-04-10] MEDS ORDERED: IOPAMIDOL (ISOVUE-300) 100 ML BTL ONE (22:18)
[2018-04-10 23:17] LABS: PLATELET COUNT 155 10^3/uL (150-400)
[2018-04-10] MEDS ORDERED: POTASSIUM Cl (KCl) 100 ML IV ONE (23:39)
[2018-04-11] MEDS ORDERED: MAGNESIUM SULF 2 GM/WATER 50 ML IV ONE ×2 (00:08→03:30)
[2018-04-11] MEDS: POTASSIUM CL 20 MEQ PKT PO ONE ×2 (00:14→02:48)
[2018-04-11] MEDS ORDERED: ceFAZolin 2 GM/DEXTROSE 100 ML IV ONE (00:17)
[2018-04-11] MEDS ORDERED: HYDROCODONE/APAP 5/325 TAB PO PRN (00:39)
[2018-04-11] MEDS ORDERED: ONDANSETRON 4 MG/2 ML VIAL IVP PRN (00:39)
[2018-04-11] MEDS: POTASSIUM Cl (KCl) 100 ML IV SCH ×2 (00:53→05:25)
[2018-04-11] MEDS ORDERED: PROTOCOL K PHOSPHATE 1 DOSE IV PRN (01:07)
[2018-04-11] MEDS ORDERED: PROTOCOL MAGNESIUM 1 DOSE IV PRN (01:07)
[2018-04-11] MEDS ORDERED: PROTOCOL CALCIUM 1 DOSE IV PRN (01:07)
[2018-04-11] MEDS ORDERED: PROTOCOL POTASSIUM 1 DOSE MISC PRN (01:07)
[2018-04-11] MEDS ORDERED: POTASSIUM CL 20 MEQ PKT ONE (01:07)
[2018-04-11] MEDS ORDERED: POTASSIUM CL 20 MEQ TAB ONE (01:09)
[2018-04-11] MEDS ORDERED: POTASSIUM CL 20 MEQ TAB PO ONE (01:14)
[2018-04-11] MEDS: ACETAMINOPHEN 325 MG TAB PO PRN (02:59)
[2018-04-11] MEDS: VANCOMYCIN 125 MG/2.5 ML UDL PO SCH ×5 (05:25→20:07)
--- NOTE | 2018-04-11 06:10 | GHP ---
DATE OF ADMISSION: 04/11/2018 SOURCE: Patient's daughter is at bedside and DPOA, and provides history. The patient is with a history of CVA and residual aphasia. EMR was reviewed and case discussed with ED provider. CHIEF COMPLAINT: Facial redness, pain, and swelling. HISTORY OF PRESENT ILLNESS: This is a pleasant 82-year-old female with past medical history significant for CVA and residual speech deficits and right facial drooping as noted above, HTN, HLD, dysphagia, recently diagnosed with C. difficile colitis and was admitted on 04/06/2018, discharge 04/08/2018. The patient was started on treatment for her C. difficile with oral vancomycin. She was subsequently discharged to home; however, patient continued to have progressive weakness, decreased oral intake, and continued diarrhea. Additionally, patient's daughter reports that she had a pimple-like lesion on her face, which patient scratched and subsequently developed some right-sided facial swelling and pain. Patient with a severe case of right lower extremity cellulitis remotely and so, daughter became increasingly concerned given the increasing redness. Symptoms started approximately 24 hours ago. The patient did not have any apparent fevers, sweats, or chills at home. In the emergency department, the patient remained afebrile. REVIEW OF SYSTEMS: Unable to obtain secondary to patient's aphasia. She does note discomfort and pain with palpation during the exam on her face. ALLERGIES: To penicillin, eggs, and shellfish. HOME MEDICATIONS: Tramadol, Lipitor, hydralazine, Lexapro, and Flonase. PAST MEDICAL HISTORY: Significant for: 1. C. difficile colitis. 2. Dysphagia, with history of CVA and residual aphasia. 3. Right-sided weakness and contraction. 4. Recurrent UTI. 5. History of urinary incontinence and bladder prolapse. 6. Breast cancer 25 years ago, status post mastectomy. 7. Hyperlipidemia. 8. Hypertension. PAST SURGICAL HISTORY: Significant for: 1. Sigmoidoscopy recently and biopsies that were nonrevealing. 2. Right mastectomy. 3. Cervical injections. 4. Bladder lifts x2. FAMILY HISTORY: Negative for CVA. Mother with CHF. Maternal grandmother with breast cancer. Father with bladder cancer. SOCIAL HISTORY: Patient lives with her daughter and son-in-law. She quit smoking many years ago. She does not currently smoke, drink, or do drugs. CODE STATUS: DNR/DNI. PHYSICAL EXAMINATION: VITAL SIGNS: On arrival to the ED, blood pressure 148/84 , heart rate 94, respiratory rate 16, O2 saturation 94% on room air, temperature 36.3. Currently, available vital signs: Blood pressure 168/63, heart rate is 88, respiratory rate 12, O2 saturation 91% on room air, temperature of 37.2. GENERAL: No acute distress. Very pleasant, elderly, frail-appearing female, lying quietly on bed. Initially asleep, but awakens to name. HEAD: Normocephalic, atraumatic. EYES: Extraocular muscles are intact. Pupils equal , round, and symmetric bilaterally with lens reflexes appreciated bilaterally. ENT: Mucous membranes appear slightly dry. No nasal discharge. No oropharyngeal erythema or exudates. NECK: Supple. Trachea midline. CV: Regular rate and rhythm. No murmurs, rubs, or gallops appreciated. RESPIRATORY : Lungs are clear to auscultation bilaterally. No wheezes, rales, or rhonchi. ABDOMEN: Obese, soft, nontender to palpation. No rebound, guarding, or masses appreciated. : No suprapubic tenderness to palpation. No Hart catheter in place. MUSCULOSKELETAL: Patient with generalized weakness and limited range of motion of her extremities. The right arm lies still close to her body. NEUROLOGIC: Patient with right-sided facial drooping, right arm weakness, and is nonverbal. PSYCHIATRIC: Affect flat. The patient awake, alert, and interactive, but nonverbal. LABORATORY STUDIES: WBC 5.66, H and H of 12.4 and 37.0, MCV 79.1, platelet count is 155. No bands. VBG: Lactic acid 1.0. Sodium is 138, potassium is 2.6, chloride 112, CO2 is 21, anion gap 5, BUN is 9, creatinine 0.6, GFR greater than 60, glucose 91, calcium 67, magnesium 1.3. IMAGING STUDIES: CT of the face reviewed, showing right facial cellulitis. No evidence of deep soft tissue abscess. Left frontal and left posterior temporal encephalomalacia which is suggestive of prior areas of cerebral infarct, posterior-superior, right parietal, partially calcified, enhancing extra-axial mass with features most suggestive of a meningioma. Correlation with prior studies would be helpful in assessing for specific interval change. ASSESSMENT AND PLAN: Pleasant 82-year- old female with history of cerebrovascular accident and residual affects with aphasia, dysphagia, and right -sided weakness, a recent Clostridium difficile colitis diagnosis, and initiation on treatment with progressive generalized weakness, fatigue, diarrhea , and electrolyte disturbance, complaints of right facial swelling and pain. 1. Right facial cellulitis. Patient has been started on Ancef in the emergency department. We will continue for now. Also, we will need to continue patient's vancomycin for a current C. difficile colitis. The patient does have extensive swelling. Anticipate she will need to be on IV antibiotics for a few days to ensure that she has improvement in her symptoms. The patient does not need sepsis criteria. Cultures are pending. 2. Clostridium difficile colitis. Continue p.o. Vanco. 3. Dysphagia. Speech Therapy evaluation and treatment. May require additional imaging studies. Family does report that she has a history of choking, and so she does small bite-sized, but no specific diet at home. 4. Hyperlipidemia. Continue Lipitor. 5. Hypertension, benign essential. Continue patient's p.o. hydralazine if tolerated, but daughter reports that she sometimes refuses to take any of her medications. 6. Mood change. Lexapro, continue. 7. Allergic rhinitis. Continue Flonase. 8. Fluids, electrolytes, and nutrition. IV fluids at this time for supplementation. Patient has had declining oral intake, hydration, and normally daughter reports that she is always dehydrated. Replacement of electrolytes as noted above. 9. Prophylaxis. SCDs, Lovenox. 10. Hypokalemia. Replacement is in progress. The patient has just a small line that is attenuous. She may require placement of a PICC line in the morning. 11. Hypomagnesemia. Replacement protocol in place. Received in the ED. 12. Hypocalcemia. We will check ionized calcium. Replacement needed. 13. Anemia, mildly decreased, likely related to chronic disease. No active bleeding. Continue to monitor. Vitals acceptable. 14. Cor status is is DNR/DNI. 15. Disposition: Patient admitted to inpatient status, given the severity of her cellulitis and anticipated need for greater than 48 hours of hospital care including IV antibiotics and electrolyte replacement. The patient will be admitted to PCU for cardiac monitoring in setting of electrolyte abnormalities. /[id number]/MODL MTDD
--- NOTE | 2018-04-11 06:48 | PDMN ---
Medical Necessity Medical necessity: Pt meets inpt criteria per MD order and MCG M-70, Cellulitis. 82 y/o admitted w/progressive weakness, decreased oral intake, diarrhea, facial swelling (extensive) /redness/pain, recent hospital stay for C.Diff colitis (dc'd on 04/08/18). Face CT shows R facial cellulitis, hypokalemia w/last K level 2.6, hypertensive w/last BP 168/63, dysphagia and declining oral intake. IVF w/electrolyte replacement, IV ABX's started and oral Vanco continued for C.Diff colitis, PT/OT/SP evals pending, anticipate > 2MN for med nec monitoring/treatment of above conditions.
[2018-04-11] MEDS: ENOXAPARIN 40 MG/0.4 ML SYR SC SCH (07:48)
[2018-04-11] MEDS ORDERED: ALTEPLASE 2 MG VIAL IVP PRN (07:49)
[2018-04-11 10:36] LABS: CREATINE KINASE 36 IU/L (0-156)
[2018-04-11] MEDS ORDERED: POTASSIUM CL 10 MEQ TAB PO ONE (10:50)
[2018-04-11] MEDS ORDERED: CETIRIZINE 10 MG TAB PO PRN (11:45)
[2018-04-11] MEDS ORDERED: HYOSCYAMINE SULFATE 0.125 MG TAB SL PRN (11:45)
--- NOTE | 2018-04-11 13:45 | ASMTCMCOM ---
CM Note CM Note Notes: Chart reviewed for discharge planning. 82 year old female admitted after discharging just 2 days before with new diagnosis of facial cellulitis. Per chart review she was discharged with HHC via [facility]. Her insurance however is [employer]. Will clarify tomorrow. CM to follow. Plan: PLan will be to have resumption of HHC when medically cleared for discharge to home. Date Signed: 04/11/2018 01:44 PM Electronically Signed By:Ameena Katz RN
[2018-04-11] MEDS ORDERED: CALCIUM GLUCONATE 50 ML IV ONE (14:30)
[2018-04-11] MEDS ORDERED: CALCIUM GLUCONATE 1 GM in D5W 50 ML IV ONE (15:00)
[2018-04-11] MEDS: CARVEDILOL 6.25 MG TAB PO SCH ×2 (15:02→15:03)
[2018-04-11] MEDS: hydrALAZINE 25 MG TAB PO SCH ×2 (15:06→20:07)
--- NOTE | 2018-04-11 16:59 | HOSPPROG ---
Hospitalist Progress Note Assessment/Plan: DIAGNOSES: * right facial cellulitis * recent episode of C difficile colitis on continuing oral vancomycin with good resolution of symptoms * hypokalemia, hypomagnesemia, hypo calcemia, hypophosphatemia * May all be due to her recent C diff colitis about * anxiety, acute on chronic, on lexapro * history of stroke with significant right-sided weakness including facial droop and significant loss of limb function, at baseline * chronic urine incontinence issues and recurrent infections * chronic hypertension At this point the patient is course is complicated by her refusal to take a lot of her medications including her antibiotics here so far. Communication is quite difficult. She has significant expressive dysphasia from a motor standpoint due to her right-sided weakness and the swelling from the infection. I talked to her about using and alphabet board to be able to spell words out but when we brought this to her she through across the room. She has been unwilling to cooperate much with nursing care here today, but we are unable to get effective communication with her to sort out why. When I had my visit with her it was a 1 on 1 visit and she was relaxed and appeared to have good comprehension and orientation during our conversation. It was mentioned to be by and nurse that the patient in the past his stated that she did not want to continue living, however I did not have any very specific information about where that came from. PLANS: * Will continue to try and work with the patient on seeing if she will accept recommended therapies treatments * When family is available will need to try and assess with the patient's desires in goals are but unable to assess that now partly due to the patient's ability only to answer yes no questions unwillingness to work with the nursing staff her speech pathologist on other methods of communication; may need palliative consultation with assistance from family * Continue her Lexapro for anxiety consider other measures * As she will accept continue Ancef for cellulitis, vancomycin for C diff; contact isolation for the C diff * Continue to monitor and replace electrolytes * PICC line has been requested for ease of monitor during and treating the electrolytes, particularly as the patient is unwilling to take oral electrolyte replacements at this time * Video swallow eval has been recommended by speech pathologist; will check with the patient and see if she will allow this tomorrow SUBJECTIVE: All communication at this time through yes no questions as the patient is not able to speak clearly enough for us to understand her words and won't use other assistive devices for communication Patient denies any pain to me Denies shortness of breath or fever symptoms OBJECTIVE Vitals reviewed: Mild hypertension otherwise stable without fever Charge Lpn, my review: Exam: alert oriented, her baseline right-sided paresis and right facial droop; is able to clearly say yes no but no other words are intelligible in her speech due to her right facial paresis and the swelling from her cellulitis resps not labored lungs clear BSs heart regular abd soft nondistended nontender, bowel sounds present limbs warm, no edema iv site ok Lab data: Potassium better after replacement so far at 3.4 Objective: Vital Signs Temp Pulse Resp BP Pulse Ox 36.8 C 70 12 148/64 H 93 04/11/18 11:54 04/11/18 15:02 04/11/18 11:54 04/11/18 15:02 04/11/18 11:54 Laboratory Results 04/11/18 10:00 04/10/18 04/11/18 04/12/18 06:59 06:59 06:59 Intake Total 1825 Output Total 525 Balance 1825 -525 ICD10 Worksheet Patient Problems: Problems Problem Status Onset Dehydration Acute Diarrhea Acute Facial cellulitis Acute Generalized weakness Acute Hypokalemia Acute Abdominal pain Acute Colitis Acute
[2018-04-11] MEDS: ASPIRIN 325 MG TAB PO SCH (20:07)
[2018-04-11] MEDS: ESCITALOPRAM OXALATE 10 MG TAB PO SCH (20:07)
[2018-04-11] MEDS: ATORVASTATIN CALCIUM 40 MG TAB PO SCH (20:07)
[2018-04-11] MEDS ORDERED: POTASSIUM Cl (KCl) 50 ML IV ONE (22:39)
[2018-04-12] MEDS: hydrALAZINE 25 MG TAB PO SCH ×4 (00:51→20:07)
[2018-04-12] MEDS: NS 1,000 ML IV SCH ×2 (05:56→20:08)
[2018-04-12] MEDS: VANCOMYCIN 125 MG/2.5 ML UDL PO SCH ×4 (05:57→20:07)
[2018-04-12] MEDS ORDERED: POTASSIUM Cl (KCl) 50 ML IV ONE (07:45)
[2018-04-12] MEDS: CARVEDILOL 6.25 MG TAB PO SCH (08:23)
[2018-04-12] MEDS: ENOXAPARIN 40 MG/0.4 ML SYR SC SCH (08:23)
[2018-04-12] MEDS ORDERED: CALCIUM GLUCONATE 50 ML IV ONE (08:45)
[2018-04-12] MEDS ORDERED: CALCIUM GLUCONATE 1 GM in D5W 50 ML IV ONE (09:00)
[2018-04-12] MEDS ORDERED: K PHOS 10 MMOL in D5W 250 ML IV ONE (12:00)
--- NOTE | 2018-04-12 14:14 | HOSPPROG ---
Hospitalist Progress Note Assessment/Plan: Assessment: # right facial cellulitis: has been improving and currently only with mild erythema, continued on ancef # hx of CVA with residual aphasia/dysphagia: s/p videofluoro swallow eval with no clear aspiration and she is tolerating diet well at this time, she does have issues with esophageal stricture and noted on VFS to have intermittent motility issues, she will have OP f/u with GI per routine but no urgent issue to see them here given no real issues eating, she has signficant right sided weakenss as well as right facial droop in addition # recent C diff colitis: continued on oral vancomycin for now, diagnosis was and she has been on tx since, sxs have resolved, will complete 2 week course but will decrease to usual dose of 125 # electrolye abnormalities: will continue to replete as needed, likely all due to c diff and poor po intake # anxiety: continue lexapro # chronic urine incontinence/recurrent infection: no current issues # htn: continue op mgmt # goals of care: javier richter palliative consult, being arranged # IP stay, will need > 48 hours care Patient new to my care. Old records reviewed and summarized as above. Subjective: no significant overnight events, patient denies any complaints currently Objective: Vital Signs Temp Pulse Resp BP Pulse Ox 37.3 C 84 16 117/76 94 04/12/18 08:01 04/12/18 08:01 04/12/18 08:01 04/12/18 08:01 04/12/18 08:01 Laboratory Results 04/12/18 05:55 04/11/18 04/12/18 04/13/18 05:59 05:59 05:59 Intake Total 1825 1167 900 Output Total 625 1 Balance 1825 542 899 awake alert anicteric op clear right facial droop, mild right facial erythema rrr no mrg cta b soft nt nd no cce warm dry well perfused oriented ICD10 Worksheet Patient Problems: Problems Problem Status Onset Dehydration Acute Diarrhea Acute Facial cellulitis Acute Generalized weakness Acute Hypokalemia Acute Abdominal pain Acute Colitis Acute
[2018-04-12] MEDS ORDERED: VANCOMYCIN 125 MG/2.5 ML UDL PO SCH (17:20)
[2018-04-12] MEDS: ESCITALOPRAM OXALATE 10 MG TAB PO SCH (20:07)
[2018-04-12] MEDS: ATORVASTATIN CALCIUM 40 MG TAB PO SCH (20:07)
[2018-04-12] MEDS: ASPIRIN 325 MG TAB PO SCH (20:07)
[2018-04-12] MEDS: ACETAMINOPHEN 325 MG TAB PO PRN (23:47)
[2018-04-13] MEDS: hydrALAZINE 25 MG TAB PO SCH ×5 (03:58→22:02)
[2018-04-13] MEDS: VANCOMYCIN 125 MG/2.5 ML UDL PO SCH ×4 (06:02→22:02)
[2018-04-13] MEDS: ENOXAPARIN 40 MG/0.4 ML SYR SC SCH (12:02)
[2018-04-13] MEDS ORDERED: MAGNESIUM SULF 1 GM/DEXTROSE 100 ML IV ONE (15:19)
--- NOTE | 2018-04-13 15:20 | HOSPPROG ---
Hospitalist Progress Note Assessment/Plan: Assessment: # right facial cellulitis: has been improving and currently only with mild erythema, continued on ancef for the time being, will transition to keflex in the am if continued to improve # hx of CVA with residual aphasia/dysphagia: s/p videofluoro swallow eval with no clear aspiration and she is tolerating diet well at this time, she does have issues with esophageal stricture and noted on VFS to have intermittent motility issues, she will have OP f/u with GI per routine but no urgent issue to see them here given no real issues eating, she has signficant right sided weakenss as well as right facial droop in addition # recent C diff colitis: continued on oral vancomycin for now, diagnosis was and she has been on tx since, sxs have resolved, will complete 2 week course but will decrease to usual dose of 125 # electrolye abnormalities: will continue to replete as needed, likely all due to c diff and poor po intake # anxiety: continue lexapro # chronic urine incontinence/recurrent infection: no current issues # htn: continue op mgmt # goals of care: javier richter palliative consult, being arranged # IP stay, will need > 48 hours care Care plan reviewed with case management, multidisciplinary care team Subjective: no signficant overnight events, patient has no complaints this am Objective: Vital Signs Temp Pulse Resp BP Pulse Ox 37.0 C 77 19 142/68 H 97 04/13/18 14:46 04/13/18 14:46 04/13/18 14:46 04/13/18 14:46 04/13/18 14:46 Laboratory Results 04/13/18 06:00 04/12/18 04/13/18 04/14/18 05:59 05:59 05:59 Intake Total 1167 2932 320 Output Total 625 101 450 Balance 542 2831 -130 awake alert anicteric op clear right facial droop, mild right facial erythema rrr no mrg cta b soft nt nd no cce warm dry well perfused oriented - Time Spent With Patient Time Spent with Patient: greater than 35 minutes Time Spent with Patient: Greater than 35 minutes spent on this patients care, greater than 50% of time spent counseling, educating, and coordinating care regarding the above mentioned plan. ICD10 Worksheet Patient Problems: Problems Problem Status Onset Dehydration Acute Diarrhea Acute Facial cellulitis Acute Generalized weakness Acute Hypokalemia Acute Abdominal pain Acute Colitis Acute
--- NOTE | 2018-04-13 16:19 | ASMTCMCOM ---
CM Note CM Note Notes: Spoke with pt's daughter who is agreeable to pt discharging to SNF rehab. On previous admission daughter did not realize staff interpreted her opposition to [facility] as an opposition to short term rehab. Daughter is not opposed to short term rehab which was recommended by PT. Referrals have been sent to [facility] and [facility]. Pt has [employer] which takes at lease 24 hours to respond for authorization. Dtr is aware. CM to follow. D/C Plan: SNF rehab Date Signed: 04/13/2018 04:19 PM Electronically Signed By:Trisha Galvez
[2018-04-13] MEDS: ESCITALOPRAM OXALATE 10 MG TAB PO SCH (22:02)
[2018-04-13] MEDS: ATORVASTATIN CALCIUM 40 MG TAB PO SCH (22:02)
[2018-04-13] MEDS: ASPIRIN 325 MG TAB PO SCH (22:02)
[2018-04-14] MEDS: VANCOMYCIN 125 MG/2.5 ML UDL PO SCH ×4 (05:31→21:03)
[2018-04-14] MEDS: LISINOPRIL 20 MG TAB PO SCH (09:43)
[2018-04-14] MEDS: CARVEDILOL 6.25 MG TAB PO SCH (09:44)
[2018-04-14] MEDS: ENOXAPARIN 40 MG/0.4 ML SYR SC SCH (09:45)
--- NOTE | 2018-04-14 13:10 | HOSPPROG ---
Hospitalist Progress Note Assessment/Plan: Assessment: 82 yo F with hx of CVA presenting with facial cellulitis and diarrhea in setting of recent dx of c diff # right facial cellulitis: has been improving and currently only with mild erythema, discontinued ancef and transitioned to keflex today, will complete another several days only of abx # hx of CVA with residual aphasia/dysphagia: s/p videofluoro swallow eval with no clear aspiration and she is tolerating diet well at this time, she does have issues with esophageal stricture and noted on VFS to have intermittent motility issues, she will have OP f/u with GI per routine but no urgent issue to see them here given no real issues eating, she has signficant right sided weakenss as well as right facial droop in addition # C diff colitis: continued on oral vancomycin for now, diagnosis was 04/06 and she has been on tx since, sxs have continued to improve but apparently still with intermittent diarrhea will complete 2 week course of treatment # electrolye abnormalities: repleted, lytes have been normal now, will dc electrolyte protocol # anxiety: continue lexapro # chronic urine incontinence/recurrent infection: no current issues # htn: continue op mgmt # goals of care: family requesting palliative consult, being arranged # IP stay, will need > 48 hours care Care plan reviewed with case management, multidisciplinary care team Subjective: no significant overnight events, patient eating/ambulating, aphasic but states "no" when asked if she has any pain or other issues Objective: Vital Signs Temp Pulse Resp BP Pulse Ox 36.7 C 67 14 112/64 96 04/14/18 08:00 04/14/18 09:44 04/14/18 08:00 04/14/18 09:44 04/14/18 08:00 Laboratory Results 04/14/18 05:30 04/13/18 04/14/18 04/15/18 05:59 05:59 05:59 Intake Total 2932 670 Output Total 101 950 Balance 2831 -280 awake alert anicteric op clear right facial droop, mild right facial erythema rrr no mrg cta b soft nt nd no cce warm dry well perfused oriented ICD10 Worksheet Patient Problems: Problems Problem Status Onset Dehydration Acute Diarrhea Acute Facial cellulitis Acute Generalized weakness Acute Hypokalemia Acute Abdominal pain Acute Colitis Acute
--- NOTE | 2018-04-14 13:30 | ASMTCMCOM ---
CM Note CM Note Notes: Pts case discussed in tx rounds. CM met w/ pts daughter Aliza for dispo planning. Daughter has chosen [facility]. CM notified [facility] to start getting auth. Updates sent to [facility]. Referral sent to [facility] for outpatient palliative care. CM to follow. Plan: [facility] w/ [facility] Date Signed: 04/14/2018 01:08 PM Electronically Signed By:KELBY Carrillo
[2018-04-14] MEDS: CEPHALEXIN 500 MG CAP PO SCH ×2 (17:15→23:33)
[2018-04-14] MEDS: ATORVASTATIN CALCIUM 40 MG TAB PO SCH (21:03)
[2018-04-14] MEDS: ESCITALOPRAM OXALATE 10 MG TAB PO SCH (21:03)
[2018-04-14] MEDS: ASPIRIN 325 MG TAB PO SCH (21:03)
[2018-04-15] MEDS: VANCOMYCIN 125 MG/2.5 ML UDL PO SCH ×2 (06:10→12:32)
[2018-04-15] MEDS: CEPHALEXIN 500 MG CAP PO SCH (06:10)
[2018-04-15] MEDS: ENOXAPARIN 40 MG/0.4 ML SYR SC SCH (09:55)
[2018-04-15] MEDS: LISINOPRIL 20 MG TAB PO SCH (09:55)
[2018-04-15] MEDS: CARVEDILOL 6.25 MG TAB PO SCH (09:55)
[2018-04-15] MEDS ORDERED: CEPHALEXIN 250 MG CAP PO SCH (12:00)
[2018-04-15 12:30] VITALS: BP 138/62
--- NOTE | 2018-04-15 13:28 | PDIAF ---
- Diagnosis Code Status: Do Not Resuscitate - Medication Management Discharge Medications: Medications to Continue on Transfer Aspirin [Aspirin 325 mg (*)] 325 mg PO HS 06/14/16 [Last Taken Unknown] Cetirizine [ZyrTEC 10 mg (*)] 10 mg PO DAILY PRN 06/14/16 [Last Taken Unknown] Atorvastatin Calcium [Lipitor 40 mg (*)] 40 mg PO HS 04/06/18 [Last Taken Unknown] Escitalopram Oxalate [Lexapro] 20 mg PO HS 04/06/18 [Last Taken Unknown] Acetaminophen [Tylenol 325mg (*)] 650 mg PO Q6 PRN tab 04/08/18 [Last Taken Unknown] Carvedilol [Coreg (*)] 6.25 mg PO DAILY 04/11/18 [Last Taken Unknown] Hyoscyamine Sulfate [Levsin, Hyomax-Sl 0.125 mg (*)] 0.125 mg SL Q4H PRN [Last Taken Unknown] Cephalexin [Keflex (*)] 250 mg PO Q6 #8 cap 04/15/18 [Last Taken Unknown] Lisinopril [Zestril 20 mg (*)] 20 mg PO DAILY #30 tab 04/15/18 [Last Taken Unknown] Vancomycin [Vancomycin (*)] 125 mg PO Q6 #24 cap 04/15/18 [Last Taken Unknown] Discharge Medications: Refer to the Discharge Home Medication list for PRN reason. - Orders Services needed: Registered Nurse, Certified Mattress Filler, Physical Therapy, Occupational Therapy Isolation Type: CDIFF Isolation, Contact Isolation Diet Texture: Regular Texture Diet, Thin Liquids, Meds Whole w/Liquids, Meds Whole in Puree - Follow Up Care Current Providers and Referrals: Abigail Logan MD [Primary Care Provider] - As per Instructions
--- NOTE | 2018-04-15 13:46 | ASMTLACE ---
LACE Length of stay for Answers: 4-6 days current admission Acuity / Level of Answers: Yes Care: Did the patient have an inpatient admission? Comorbidities - select Answers: Cerebrovascular disease all that apply (CVA, TIA, aneurysms, vasc ular dementia) Opioid dependence / Chronic pain Other Notes: HTN; HLD # of Emergency department Answers: 3-4 visits in the last 6 months Score: 16 Date Signed: 04/15/2018 01:45 PM Electronically Signed By:KELBY Carrillo
--- NOTE | 2018-04-15 13:48 | ASMTDCNOTE ---
Case Management Discharge Discharge Order Complete? Answers: Yes Patient to Obtain Answers: Other Notes: [facility] Medications Transportation Arranged Answers: Family/Friends EMTALA Complete Answers: No Case Management Transport Answers: No Form Complete Faxed Final Orders Answers: Yes Agency/Facility Transfer Answers: Yes Report Printed & Faxed to Receiving Agency Family Notified Answers: Yes Discharge Comments Notes: Pts case discussed in tx rounds. Pt is being discharged today to [facility]. Pts daughter Makayla would like to bring her to [facility]. DC orders sent. CM provided [facility] [place] w/ phone number to give report. CM available for changes. Plan: [facility] Date Signed: 04/15/2018 01:47 PM Electronically Signed By:KELBY Carrillo
--- NOTE | 2018-04-15 13:50 | ASMTCMCOM ---
CM Note CM Note Notes: CM notified [facility] about the d/c. DC paperwork sent to them. Date Signed: 04/15/2018 01:49 PM Electronically Signed By:KELBY Carrillo
--- NOTE | 2018-04-15 13:51 | ASDISCHSUM ---
Discharge Information Plan Status:SNF Medically Cleared to Leave:04/15/2018 Discharge Date:04/15/2018 CM D/C Disposition: ADT D/C Disposition:Prison Facility Projected Discharge Date:04/15/2018 11:00 AM Transportation at D/C: Discharge Delay Reason: Follow-Up Date:04/15/2018 11:00 AM Discharge Slot: Final Diagnosis: Placement Information Referral Type:*Shelter/SNF Referral ID:[id number] Provider Name:[facility] Address 1:[address] Address 2: City:[place] Selection Factors: State:[place] Referral Type:Palliative Care Referral ID:-[id number] Provider Name:[facility] Address 1:[address] Phone Number: Address 2: Fax Number: [facility]:[place] Selection Factors: State:[place] Patient Contact Information Contact Name:GABRIELLE Relationship:Daughter Address: [address] Work Phone: City:[place] Alternate Phone: State/Zip Code:[place] [address] Email: Financial Information Financial Class:Medicare Advantage Plans Primary Plan Desc:[employer] MEDICARE ADV Primary Plan Number:[id number] Secondary Plan Desc: Secondary Plan Number: Assessment Information [facility] CM Progress Note CM Note CM Note Notes: Chart reviewed for discharge planning. 82 year old female admitted after discharging just 2 days before with new diagnosis of facial cellulitis. Per chart review she was discharged with HHC via [facility]. Her insurance however is [employer]. Will clarify tomorrow. CM to follow. Plan: PLan will be to have resumption of HHC when medically cleared for discharge to home. Date Signed: 04/11/2018 01:44 PM Electronically Signed By:Ameena Katz RN LACE LACE Length of stay for Answers: 4-6 days current admission Acuity / Level of Answers: Yes Care: Did the patient have an inpatient admission? Comorbidities - select Answers: Cerebrovascular disease all that apply (CVA, TIA, aneurysms, vasc ular dementia) Opioid dependence / Chronic pain Other Notes: HTN; HLD # of Emergency department Answers: 3-4 visits in the last 6 months Score: 16 Date Signed: 04/15/2018 01:45 PM Electronically Signed By:KELBY Carrillo [facility] AURELIO Progress Note CM Note CM Note Notes: Spoke with pt's daughter who is agreeable to pt discharging to SNF rehab. On previous admission daughter did not realize staff interpreted her opposition to longterm as an opposition to short term rehab. Daughter is not opposed to short term rehab which was recommended by PT. Referrals have been sent to [facility] and [facility]. Pt has [employer] which takes at lease 24 hours to respond for authorization. Dtr is aware. CM to follow. D/C Plan: SNF rehab Date Signed: 04/13/2018 04:19 PM Electronically Signed By:Trisha Galvez [facility] CM Progress Note CM Note CM Note Notes: Pts case discussed in tx rounds. CM met w/ pts daughter Aliza for dispo planning. Daughter has chosen [facility]. CM notified [facility] to start getting auth. Updates sent to [facility]. Referral sent to [facility] for outpatient palliative care. CM to follow. Plan: [facility] w/ [facility] Date Signed: 04/14/2018 01:08 PM Electronically Signed By:KELBY Carrillo Case Management Discharge Plan Note Case Management Discharge Discharge Order Complete? Answers: Yes Patient to Obtain Answers: Other Notes: [facility] Medications Transportation Arranged Answers: Family/Friends EMTALA Complete Answers: No Case Management Transport Answers: No Form Complete Faxed Final Orders Answers: Yes Agency/Facility Transfer Answers: Yes Report Printed & Faxed to Receiving Agency Family Notified Answers: Yes Discharge Comments Notes: Pts case discussed in tx rounds. Pt is being discharged today to [facility]. Pts daughter Makayla would like to bring her to [facility]. DC orders sent. CM provided CURTIS Mills w/ phone number to give report. CM available for changes. Plan: [facility] Date Signed: 04/15/2018 01:47 PM Electronically Signed By:KELBY Carrillo [facility] CM Progress Note CM Note CM Note Notes: CM notified [facility] about the d/c. DC paperwork sent to them. Date Signed: 04/15/2018 01:49 PM Electronically Signed By:KELBY Carrillo Intervention Information Intervention Type:*Incorrect Registration Date of Service:04/11/2018 07:27 AM Patient Type:Inpatient Staff Member:CURTIS Parks, Caren Hours: Discipline: Severity: Comment:
== END 2018-04-15 14:44 | DRG 603 ==
LOC: OBSVTOIN 04-11 00:41 → F2W 04-11 02:27
PROVIDERS: ADMIT Family Medicine; ATTEND Family Medicine
PROC: 02HV33Z Insertion of Infusion Device into Superior Vena Cava, Percutaneous Approach (ICD-10-PCS; principal; 2018-04-11)
DX: L03.211 Cellulitis of face (principal); E86.0 Dehydration; E87.6 Hypokalemia; E83.42 Hypomagnesemia; E83.51 Hypocalcemia; E83.39 Other disorders of phosphorus metabolism; D63.8 Anemia in other chronic diseases classified elsewhere; I69.320 Aphasia following cerebral infarction; I69.391 Dysphagia following cerebral infarction; R13.14 Dysphagia, pharyngoesophageal phase; I69.351 Hemiplegia and hemiparesis following cerebral infarction affecting right dominant side; A04.72 Enterocolitis due to Clostridium difficile, not specified as recurrent; F41.9 Anxiety disorder, unspecified; I10 Essential (primary) hypertension; E78.5 Hyperlipidemia, unspecified; Z85.3 Personal history of malignant neoplasm of breast; Z90.11 Acquired absence of right breast and nipple; Z87.440 Personal history of urinary (tract) infections; Z87.891 Personal history of nicotine dependence
CPT/HCPCS: 92526-GN; 92610-GN; 92611-GN; 97116-GP; 97162-GP; 97166-GO; 97530-GO; 97530-GP; 97535-GO; C1751; G8978-GP-CK; G8979-GP-CJ; G8987-GO-CK; G8988-GO-CJ; G8996-GN-CJ; G8997-GN-CI; G8998-GN-CI; J0610; J0690; J1650; J3475; J3480; Q9967

== ENCOUNTER 2018-05-07 16:49 | Inpatient (IN) | payer OTHER ==
--- NOTE | 2018-05-07 17:16 | EDPHY ---
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.htn ,breast ca 25 yrs ago,high chol, HTN, non verbal,CDIFF - Social History Smoking Status: Former smoker Constitutional: Initial Vital Signs Temperature (C) 37.2 C 05/07/18 16:59 Heart Rate 82 05/07/18 16:59 Respiratory Rate 18 05/07/18 16:59 Blood Pressure 144/67 H 05/07/18 16:59 O2 Sat (%) 94 05/07/18 16:59 O2 Delivery Mode Room Air Allergies/Adverse Reactions: egg Allergy (Verified 05/07/18 17:04) Unknown Penicillins Allergy (Verified 05/07/18 17:04) Unknown shellfish derived Allergy (Verified 05/07/18 17:04) Unknown Home Medications: Medication Instructions Recorded Aspirin [Aspirin 325 mg (*)] 325 mg PO HS 06/14/16 Cetirizine [ZyrTEC 10 mg (*)] 10 mg PO DAILY PRN 06/14/16 Atorvastatin Calcium [Lipitor 40 40 mg PO HS 04/06/18 mg (*)] Escitalopram Oxalate [Lexapro] 20 mg PO HS 04/06/18 Acetaminophen [Tylenol 325mg (*)] 650 mg PO Q6 PRN tab 04/08/18 Carvedilol [Coreg (*)] 6.25 mg PO DAILY 04/11/18 Hyoscyamine Sulfate [Levsin, 0.125 mg SL Q4H PRN 04/11/18 Hyomax-Sl 0.125 mg (*)] Cephalexin [Keflex (*)] 250 mg PO Q6 #8 cap 04/15/18 Lisinopril [Zestril 20 mg (*)] 20 mg PO DAILY #30 tab 04/15/18 Vancomycin [Vancomycin (*)] 125 mg PO Q6 #24 cap 04/15/18 Medical Decision Making ED Course/Re-evaluation: CHIEF COMPLAINT: Abdominal pain, diarrhea HISTORY OF PRESENT ILLNESS: The patient is an 82 y/o female with a history of CVA with residual deficits arriving with her family member complaining of recurrent diarrhea and diffuse abdominal pain. She was admitted on 04/11/18, 1 month ago, for facial cellulitis and C.difficile colitis. She was discharged to SNF on oral vancomycin and completed this about 2 weeks ago. She had about 10 days of no diarrhea before symptoms returned four days ago. She complaining of cramping diffuse pain. No fever, vomiting, chest pain, dyspnea, or other acute complaints. REVIEW OF SYSTEMS: A comprehensive 10 system review of systems is otherwise negative aside from elements mentioned in the history of present illness and medical decision making. PHYSICAL EXAM: HR, BP, O2 Sat, RR. Temp noted General Appearance: Alert, well hydrated, appropriate, and non-toxic appearing. Head: Atraumatic without scalp tenderness or obvious injury Eyes: Pupils equal, round, reactive to light and accommodation, EOMI, no trauma , no injection. Nose: Atraumatic, no rhinorrhea, clear. Throat: Mucus membranes moist. Neck: Supple, nontender, no lymphadenopathy. Respiratory: No retractions, no distress, no wheezes, and no accessory muscle use. Lungs are clear to auscultation bilaterally. Cardiovascular: Regular rate and rhythm, no murmurs, rubs, or gallops. Good capillary refill all extremities. Gastrointestinal: Abdomen is soft, diffuse tenderness, non-distended, no masses , no rebound, no guarding, no peritoneal signs. Musculoskeletal: Normal active ROM of all extremities, atraumatic. Neurological: Alert, appropriate, and interactive. Baseline right-sided deficits. Skin: No rashes, good turgor, no nodules on palpation. 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 Surgical history: Right mastectomy, bladder lifts x2 Family history: Noncontributory Social history: Lives with daughter and son-in-law; former smoker; family member at bedside. Prior medical records reviewed including admission 04/11/18 for facial cellulitis and c. difficile infection. DIFFERENTIAL DIAGNOSIS: The differential diagnosis for the patient's abdominal pain and diarrhea included but was not limited to c. difficile colitis , gastroenteritis, gastritis, appendicitis, and medication side effect. MEDICAL DECISION MAKING: This is an 82 y/o female with a history of CVA with residual deficits and recent diagnosis of C. difficile who presents with a 4-day history of abdominal pain and diarrhea about 2 weeks after completing vancomycin treatment. She has diffuse abdominal tenderness. Plan for IV, labs, UA, stool sample, symptomatic management, and admission. 250mg PO Vancomycin ordered for suspected c. difficile. Spoke with hospitalist service. Dr. Yan accepts admission. - Data Points Laboratory Results: Laboratory Results 05/07/18 18:12 05/07/18 18:12 05/07/18 05/07/18 05/07/18 19:20 18:12 18:12 WBC 7.89 10^3/uL 10^3/uL (3.80-9.50) RBC 4.77 10^6/uL 10^6/uL (4.18-5.33) Hgb 12.4 g/dL L g/dL (12.6-16.3) Hct 38.5 % % (38.0-47.0) MCV 80.7 fL L fL (81.5-99.8) MCH 26.0 pg L pg (27.9-34.1) MCHC 32.2 g/dL L g/dL (32.4-36.7) RDW 13.4 % % (11.5-15.2) Plt Count 153 10^3/uL 10^3/uL (150-400) MPV 11.6 fL fL (8.7-11.7) Neut % (Auto) 74.6 % H % (39.3-74.2) Lymph % (Auto) 13.7 % L % (15.0-45.0) [place] % (Auto) 7.6 % % (4.5-13.0) Eos % (Auto) 3.2 % % (0.6-7.6) Baso % (Auto) 0.4 % % (0.3-1.7) Nucleat RBC Rel Count 0.0 % % (0.0-0.2) Absolute Neuts (auto) 5.89 10^3/uL 10^3/uL (1.70-6.50) Absolute Lymphs (auto) 1.08 10^3/uL 10^3/uL (1.00-3.00) Absolute Monos (auto) 0.60 10^3/uL 10^3/uL (0.30-0.80) Absolute Eos (auto) 0.25 10^3/uL 10^3/uL (0.03-0.40) Absolute Basos (auto) 0.03 10^3/uL 10^3/uL (0.02-0.10) Absolute Nucleated RBC 0.00 10^3/uL 10^3/uL (0-0.01) Immature Gran % 0.5 % % (0.0-1.1) Immature Gran # 0.04 10^3/uL 10^3/uL (0.00-0.10) Sodium 138 mEq/L mEq/L (135-145) Potassium 3.2 mEq/L L mEq/L (3.3-5.0) Chloride 105 mEq/L mEq/L (97-110) Carbon Dioxide 26 mEq/l mEq/l (22-31) Anion Gap 7 mEq/L mEq/L (6-14) BUN 18 mg/dL mg/dL (7-23) Creatinine 0.7 mg/dL mg/dL (0.6-1.0) Estimated GFR > 60 Glucose 96 mg/dL mg/dL (70-100) Calcium 8.7 mg/dL mg/dL (8.5-10.4) Total Bilirubin 0.5 mg/dL mg/dL (0.1-1.4) Conjugated Bilirubin 0.2 mg/dL mg/dL (0.0-0.5) Unconjugated Bilirubin 0.3 mg/dL mg/dL (0.0-1.1) AST 14 IU/L IU/L (14-46) ALT 24 IU/L IU/L (9-52) Alkaline Phosphatase 63 IU/L IU/L (38-126) Total Protein 5.8 g/dL L g/dL (6.3-8.2) Albumin 3.3 g/dL L g/dL (3.5-5.0) Lipase 47 IU/L IU/L (23-300) Urine Color Pending Urine Appearance Pending Urine pH Pending Ur Specific Bates Pending Urine Protein Pending Urine Ketones Pending Urine Blood Pending Urine Nitrate Pending Urine Bilirubin Pending Urine Urobilinogen Pending Ur Leukocyte Esterase Pending Urine RBC Pending Urine WBC Pending Ur Epithelial Cells Pending Urine Glucose Pending Medications Given: Discontinued Medications Sodium Chloride (Ns) 1,000 mls @ 0 mls/hr IV EDNOW ONE; Wide Open PRN Reason: Protocol Stop: 05/07/18 17:30 Last Admin: 05/07/18 18:21 Dose: 1,000 mls Departure - Departure Disposition: [facility] In[facility] Acute Clinical Impression: Colitis Diarrhea Qualifiers: Diarrhea type: unspecified type Qualified Code(s): R19.7 - Diarrhea, unspecified Condition: Fair Referrals: NONE *PRIMARY CARE P,. [Primary Care Provider] - As per Instructions Report Scribed for: Shaka Salinas Report Scribed by: Maria Eugenia Elizabeth Date of Report: 05/07/18 Time of Report: 17:36
[2018-05-07] MEDS ORDERED: NS 1,000 ML IV ONE (17:29)
[2018-05-07 18:30] LABS: PLATELET COUNT 153 10^3/uL (150-400)
[2018-05-07] MEDS ORDERED: VANCOMYCIN 125 MG/2.5 ML UDL PO ONE (19:37)
[2018-05-07] MEDS ORDERED: ONDANSETRON 4 MG/2 ML VIAL IVP PRN (19:46)
[2018-05-07] MEDS ORDERED: POTASSIUM CL 20 MEQ/15 ML UDCUP PO ONE (19:47)
[2018-05-07] MEDS ORDERED: PROTOCOL POTASSIUM 1 DOSE MISC PRN (19:47)
--- NOTE | 2018-05-07 19:56 | PDGENHP ---
History and Physical History and Physical: CC: Sent in from custodial with frequent stooling with history of recent C difficile HISTORY: ROS: A comprehensive 10 system review revealed no other significant findings PAST MEDICAL HISTORY: Recent C difficile infection. Antibiotics 10 days ago Dementia Stroke, residual speech deficits and right-sided weakness Breast cancer 25 years ago Hyperlipidemia Hypertension Urinary incontinence bladder prolapse, urologic surgeries FAMILY MEDICAL HISTORY: No pertinent issues listed in the chart, unable to clarify history from patient at this time SOCIAL HISTORY: Former smoker Lives at a nursing facility locally MEDICATIONS: The patients list has been reconciled by our clinical pharmacist in the EMR. I have reviewed the list and ordered appropriate medicines. 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 Shaka Salinas I have reviewed the patient's past medical records as part of this assessment, including
[2018-05-07] MEDS ORDERED: HYOSCYAMINE SULFATE 0.125 MG TAB SL PRN (20:46)
--- NOTE | 2018-05-07 21:00 | PDGENHP ---
History and Physical History and Physical: CC: Sent in from assisted with frequent stooling with history of recent C difficile HISTORY: This patient comes in with recurrent diarrhea after recent treatment for C difficile colitis. She was originally seen here in late February with lower abdominal pain. At that time a CT scan showed distal colitis, however with some white cell seen in the urine her ER diagnosis was UTI and she was treated with Keflex. Urine cultures did not grow a specific organism and her abdominal pain continued. She came back here on April 06 with lower abdominal pain and diarrhea. The stool studies at that time showed evidence of C difficile colitis. She was started on oral vancomycin and had very gradual resolution of her symptoms. In the interim she was admitted here April 11 with a facial cellulitis which she was treated with antibiotics. At the time of that presentation she was on day 11 of vancomycin still having some symptoms. She did complete 14 days of therapy overall for vancomycin. Talking to her son who gives history is the patient is aphasic she was doing fine until 4 days ago. At that time she had 1 loose stool. Since then she has had an increase in number of watery stools and increase in lower abdominal pain every day. She has had no fevers or bleeding and no nausea or vomiting. She is eating. She is weaker than usual. No urinary symptoms ROS: She does complain of some right-sided lateral hip pain without history of fall or injury. It is hard for me to clarify how long that has been present. 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 I have reviewed the list and ordered appropriate medicines. PHYSICAL EXAMINATION: Vital Signs: Stable without fever Product Management Internship: Examination: General: alert, oriented, relaxed Neurologic: Completely aphasic speech but has apparent good comprehension, answer yes and no with head shake and grunts, has her chronic baseline unilateral weakness no other acute neurologic changes Skin: warm, dry, good color, no rash HEENT: normal Neck: no mass or jvd Resps: relaxed Lungs: clear breath sounds Heart: regular, no murmur Abdomen: soft, nondistended, some mild lower abdominal tenderness without guarding or rebound, +BS, no mass Upper Extremities: normal Lower Extremities: There is remarkable tenderness over the right greater trochanter but no visible abnormality; very good passive and active range of motion of the hip with a little bit of pain in that same area; no edema, warm No Bleeding or bruising IV site: looks normal LABORATORY DATA: Potassium 3.2 otherwise unremarkable CBC and chemistry panels ASSESSMENT: * 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 likely representing failure of the vancomycin therapy for the initial treatment, question if the antibiotics used for cellulitis impacted the success of this therapy * hypokalemia due to above; she is at high risk for dehydration * tenderness over the right greater trochanter with pain at that area; suspect trochanteric bursitis but other etiologies are possible * expressive aphasia and weakness from prior stroke * history of breast cancer PLANS: * Inpatient status as this will likely take at least 2-3 days to resolved to the point of safe discharge * IV hydration * Potassium replacement by protocol * Oral vancomycin * Consider Gastroenterology and/or infectious disease consult in the morning to review final treatment strategy for this case * Will x-ray her right hip to be certain no fracture tumor or other cause of pain; if no obvious abnormality will ask physical therapy to treat her for trochanteric bursitis; if pain persists could perform steroid injection there I have reviewed the patient's case in detail with Dr. Shaka Salinas I have reviewed the patient's past medical records as part of this assessment, including previous hospital admission and ER visit records
[2018-05-07] MEDS: VANCOMYCIN 125 MG/2.5 ML UDL PO SCH (22:02)
[2018-05-07] MEDS: LISINOPRIL 20 MG TAB PO SCH (22:02)
[2018-05-07] MEDS: ATORVASTATIN CALCIUM 40 MG TAB PO SCH (22:03)
[2018-05-07] MEDS: CARVEDILOL 6.25 MG TAB PO SCH (22:03)
[2018-05-07] MEDS: ASPIRIN 325 MG TAB PO SCH (22:03)
[2018-05-07] MEDS: MELATONIN 3 MG TAB PO SCH (22:03)
[2018-05-07] MEDS: CETIRIZINE 10 MG TAB PO PRN (22:03)
[2018-05-07] MEDS: ESCITALOPRAM OXALATE 10 MG TAB PO SCH (22:04)
[2018-05-07] MEDS: NS 1,000 ML IV SCH (22:09)
[2018-05-08] MEDS: VANCOMYCIN 125 MG/2.5 ML UDL PO SCH ×4 (05:58→20:19)
[2018-05-08] MEDS: POTASSIUM Cl (KCl) 100 ML IV SCH ×3 (08:56→11:21)
--- NOTE | 2018-05-08 09:00 | PDMN ---
Medical Necessity Medical necessity: MCG: M170 gastroenteritis A-1 day: 82 yr old female- recently completed oral ABX X 10 days. [facility] resident with freq. stooling recent hx of C diff., abd pain, weakness, R sided hip pain, hypokalemia, PMH recent C diff infection, stroke with residual speech deficits and R sided weakness, Br. Ca 25 yrs ago, HTN, hyperlipidemia, urinary incontinence bladder prolapse, former smoker, anticipate > 2 MN ongoing med nec care, further eval and tx.
[2018-05-08] MEDS: NS 1,000 ML IV SCH (13:24)
--- NOTE | 2018-05-08 15:19 | ASMTCMCOM ---
CM Note CM Note Notes: Pt was admitted with recurrent c-diff. She has a hx of CVA and aphasia, HTN, breast CA. Currently on IV ABX. Pt was here 04/11-04/15/18 for c-diff and discharged to [facility]. She lives with family. Her son in law Isreal Smiley [phone] is her MDPOA. PT/OT have cleared pt as she is close to her baseline. CM will follow for any d/c needs. D/C Plan: TBD Date Signed: 05/08/2018 03:18 PM Electronically Signed By:SAUL Posada
--- NOTE | 2018-05-08 15:51 | HOSPPROG ---
Hospitalist Progress Note Assessment/Plan: Subjective Follow-up on loose stools and diarrhea. Patient has not had any bowel movements since coming into the hospital. She was started empirically on oral vancomycin in light of her recent history of C diff colitis and antibiotic use. Objective Vital signs as detailed below Exam General-awake alert conversant no acute distress, sitting in a chair at the bedside Heart-regular rate and rhythm no murmurs Lungs-Clear to auscultation with normal respiratory effort Abdomen-soft nontender nondistended normal bowel sounds -no Hart catheter in place Extremities-no significant pitting edema or calf pain with palpation Skin-no concerning skin rashes noted Labs as detailed below Assessment and plan Diarrhea-due to suspected recurrence of C diff colitis. Clinically improved with oral vancomycin. Continue at 125 mg 4 times a day. Hypokalemia-likely related to hypovolemia from diarrhea and loss of electrolytes. Improved. Recheck again tomorrow morning. Right hip pain-no fracture noted on x-rays. Physical therapy ordered. History of CVA-she has residual expressive aphasia. Hypertension-stable with current Coreg and lisinopril dosing. Hyperlipidemia-atorvastatin. History of breast cancer-this was approximately 25 years ago when he was initially diagnosed. Anxiety-continue Lexapro. DVT prophylaxis-Lovenox. Disposition-likely home tomorrow if continued clinical stability. Objective: Vital Signs Temp Pulse Resp BP Pulse Ox 36.8 C 61 16 117/53 L 91 L 05/08/18 15:45 05/08/18 15:45 05/08/18 15:45 05/08/18 15:45 05/08/18 15:45 Laboratory Results 05/08/18 05:31 05/07/18 05/08/18 05/09/18 05:59 05:59 05:59 Intake Total 500 Balance 500 ICD10 Worksheet Patient Problems: Problems Problem Status Onset Colitis Acute Diarrhea Acute Abdominal pain Acute Dehydration Acute Facial cellulitis Acute Generalized weakness Acute Hypokalemia Acute
[2018-05-08] MEDS ORDERED: POTASSIUM CL 10 MEQ TAB PO ONE (19:25)
[2018-05-08] MEDS: CARVEDILOL 6.25 MG TAB PO SCH (20:18)
[2018-05-08] MEDS: MELATONIN 3 MG TAB PO SCH (20:18)
[2018-05-08] MEDS: CETIRIZINE 10 MG TAB PO PRN (20:18)
[2018-05-08] MEDS: ESCITALOPRAM OXALATE 10 MG TAB PO SCH (20:18)
[2018-05-08] MEDS: LISINOPRIL 20 MG TAB PO SCH (20:19)
[2018-05-08] MEDS: ATORVASTATIN CALCIUM 40 MG TAB PO SCH (20:19)
[2018-05-08] MEDS: ASPIRIN 325 MG TAB PO SCH (20:19)
[2018-05-09] MEDS: VANCOMYCIN 125 MG/2.5 ML UDL PO SCH ×3 (05:01→16:49)
[2018-05-09] MEDS ORDERED: ENOXAPARIN 40 MG/0.4 ML SYR SC SCH (09:00)
--- NOTE | 2018-05-09 14:13 | ASMTLACE ---
LACE Length of stay for Answers: 2 days current admission Acuity / Level of Answers: Yes Care: Did the patient have an inpatient admission? Comorbidities - select Answers: Other Notes: Cdiff, HTN all that apply # of Emergency department Answers: 3-4 visits in the last 6 months Score: 9 Date Signed: 05/09/2018 02:12 PM Electronically Signed By:Charisse Ortiz RN
--- NOTE | 2018-05-09 14:14 | ASMTCMCOM ---
CM Note CM Note Notes: Spoke w/RN, pt will dc home w/support of family. Cleared by PT/OT for home. DC Plan: Independent Date Signed: 05/09/2018 02:13 PM Electronically Signed By:Charisse Ortiz RN
[2018-05-09 15:56] VITALS: BP 137/57
--- NOTE | 2018-05-09 18:30 | GDS ---
DISCHARGE DIAGNOSIS: Suspected C difficile colitis. HISTORY OF PRESENT ILLNESS: The patient is a pleasant 82-year-old female with a history of recent tr eatment for C difficile colitis as well as being on antibiotics for facial cellulitis. She had devel oped frequent loose stools at the long term facility she was residing at when she was brought t o the [facility] Emergency Room for further evaluation. She was started empirically on vancom ycin before any stool studies could be obtained. She did have a rather prompt improvement of her sym ptoms and, fortunately, was felt safe for discharge on 05/09/2018. HOSPITAL COURSE BY PROBLEM: Diarrhea: Presumed recurrence of C difficile colitis. Clinically, she did improve quite rapidly with oral vancomycin. I recommend that she continue with another course of vancomycin at 125 mg 4 times a day to complete a 10-day course of therapy. Hypokalemia: Improved, likely related to loss of electrolytes from her diarrhea. This did resolve. Right hip pain: No x-rays were seen on imaging. Physical therapy consulted during this hospitalizat ion. On the day of discharge, she was not having any pain localizing to the right hip. 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 Hypertension: She was continued on Coreg and lisinopril. Hyperlipidemia: Patient is currently on atorvastatin. History of breast cancer: This was diagnosed approximately 25 years ago. Anxiety: Continue Lexapro. DVT prophylaxis: Patient was on Lovenox during this hospitalization. DISCHARGE PHYSICAL EXAMINATION: VITAL SIGNS: Temperature 37.0, blood pressure 121/59, heart rate 57 , respirations 16, sating 91% on room air. GENERAL: Patient appears comfortable. She is awake, janice rt, conversant in no acute distress. HEART: Regular. No murmurs appreciated. LUNGS: Clear on auscultation with normal respiratory effort. ABDOMEN: Soft, nontender, nondistende d. Normal bowel sounds. : No Hart catheter in place. EXTREMITIES: No significant pitting kristin a or calf pain with palpation. LABORATORY STUDIES: Notable studies: C difficile toxin PCR was positive on 05/08/2018. Sodium 141, potassium 4.2, chloride 113, bicarb 23, BUN 14, creatinine 0.7, glucose of 94. White blood cell cou nt 7, hemoglobin 12, platelets 153. DISCHARGE MEDICATIONS: 1. Aspirin 325 mg daily. 2. Lipitor 40 mg nightly. 3. Coreg 6.25 mg nightly. 4. Zyrtec 10 mg daily. 5. Lexapro 20 mg nightly. 6. Levsin 0.125 mg every 4 hours as needed. 7. Lisinopril 20 mg nightly. 8. Vancomycin 125 mg 4 times a day for 9 additional days to complete a 10-day course. DISCHARGE INSTRUCTIONS: I recommend a followup visit with her primary provider in 1-2 weeks' time to ensure improvement of her diarrhea. 35 minutes of time dedicated to discharge efforts. /[id number]/MODL
== END 2018-05-09 17:05 | disposition home or self-care (01) | DRG 372 ==
LOC: F3E 20:53
PROVIDERS: ADMIT Internal Medicine; ATTEND Internal Medicine
DX: A04.71 Enterocolitis due to Clostridium difficile, recurrent (principal); M25.551 Pain in right hip; F41.9 Anxiety disorder, unspecified; F03.90 Unspecified dementia, unspecified severity, without behavioral disturbance, psychotic disturbance, mood disturbance, and anxiety; E87.6 Hypokalemia; I69.391 Dysphagia following cerebral infarction; I69.320 Aphasia following cerebral infarction; I69.351 Hemiplegia and hemiparesis following cerebral infarction affecting right dominant side; Z85.3 Personal history of malignant neoplasm of breast; I10 Essential (primary) hypertension; E78.00 Pure hypercholesterolemia, unspecified; Z87.891 Personal history of nicotine dependence
CPT/HCPCS: 92526-GN; 92610-GN; 97116-GP; 97161-GP; 97165-GO; G8978-GP-CJ; G8979-GP-CJ; G8980-GP-CJ; G8987-GO-CJ; G8988-GO-CJ; G8989-GO-CJ; G8996-GN-CI; G8997-GN-CI; G8998-GN-CI; J1650; J3480

== ENCOUNTER 2018-05-28 10:35 | Day surgery (SDC) | payer OTHER ==
[2018-05-28] MEDS ORDERED: LIDOCAINE 1% 2 ML INJ ID PRN (10:55)
[2018-05-28] MEDS ORDERED: LR 1,000 ML IV ONE (10:55)
--- NOTE | 2018-05-28 12:15 | PDPROPOC ---
Sedation Plan of Care Sedation Plan of Care: vital signs stable, mental status noted, patient educated of risks, benefits, alternatives, patient can tolerate sedation ASA Classification: ASA 3 Planned drugs: fentanyl, midazolam Mallampati Score: Class 2 Mallampati Reference Image: Patient passed 3-3-2 rule?: Yes
[2018-05-28] MEDS ORDERED: MIDAZOLAM 2 MG/2 ML VIAL ONE (12:18)
--- NOTE | 2018-05-28 12:18 | PDGENHP ---
History & Physical Chief Complaint: dysphagia abnl ugi seeries History of Present Illness: dysphagia Pertinent Past, Social, Family History: no tobacco, no alcohol. cva, dysphagia , psych, haert dz Relevant Physical Exam: alert. cta. s1s2. +BS, soft nt Cardiorespiratory Assessment: class 3
[2018-05-28] MEDS ORDERED: fentaNYL 100 MCG/2 ML INJ ONE (12:19)
[2018-05-28] MEDS ORDERED: MIDAZOLAM 2 MG/2 ML VIAL IVP ONE (12:40)
[2018-05-28] MEDS ORDERED: fentaNYL 100 MCG/2 ML INJ IVP ONE (12:40)
--- NOTE | 2018-05-28 12:49 | GIREPORT ---
[facility] Surgical Services - Endoscopy Department Patient Name: Constantin Sorto Procedure Date: 05/28/2018 12:20 PM Patient Type: Outpatient Attending MD/ ER Physician: Anastasia Ojeda Procedure: Upper GI endoscopy Indications: Dysphagia, Abnormal cine-esophagram Providers: Chip Ravi MD Referring MD: Abigail Logan Medicines: Fentanyl 100 micrograms IV, Midazolam 4 mg IV Complications: No immediate complications. Estimated blood loss: Minimal. Description of Procedure: After obtaining informed consent, the endoscope was passed under direct vision. Throughout the procedure, the patient's blood pressure, pulse, and oxygen saturations were monitored continuously. The Endoscope was intro duced through the mouth, and advanced to the second part of duodenum. The [facility] er GI endoscopy was accomplished without difficulty. The patient tolerated th e procedure well. Findings: The examined esophagus was normal. A guidewire was placed and the scope was withdrawn. Dilation was performed with a Savary dilator with no resista nce at 60 Fr. The dilation site was examined following endoscope reinsertio n and showed mild improvement in luminal narrowing. Estimated blood loss was minimal. The entire examined stomach was normal. The examined duodenum was normal. The exam was otherwise without abnormality. Estimated Blood Loss: Estimated blood loss was minimal. Post Op Diagnosis: - Normal esophagus. Dilated. There was no visible effect in the upper esophageal sphincter. There was a mild dilation in her dital third of h er esophagus. - Normal stomach. - Normal examined duodenum. - The examination was otherwise normal. - No specimens collected. Recommendation: - Resume previous diet. - Continue present medications. - Perform a cine-esophagram at appointment to be scheduled. - Patient has a contact number available for emergencies. The signs and symptoms of potential delayed complications were discussed with the pat ient. Return to normal activities tomorrow. Written discharge instructions we re provided to the patient. - Continue present medications. - If this dilation is helpful and long lasting, but her symptom recur c ould consider repeat dilation as needed. - Discharge patient to home (ambulatory). - Return to primary care physician as previously scheduled. - Thank you for allowing me to help in your patient's care. Do not hesi diaz to call with any questions. Attending Participation: I personally performed the entire procedure. Breonna Saunders M.D Chip Ravi MD 05/28/2018 12:48:38 PM This report has been signed electronicallyMathew MD Breonna Number of Addenda: 0 Note Initiated On: 05/28/2018 12:20 PM [email or web address]}
[2018-05-28 13:55] VITALS: BP 155/87
== END 2018-05-28 13:56 | disposition home or self-care (01) ==
LOC: FSGY 10:35
PROVIDERS: ATTEND Internal Medicine Gastroenterology
PROC: 0DJ08ZZ Inspection of Upper Intestinal Tract, Via Natural or Artificial Opening Endoscopic (ICD-10-PCS; principal; 2018-05-28 12:00)
DX: R13.10 Dysphagia, unspecified (principal); Z66 Do not resuscitate
CPT/HCPCS: J2250; J3010

== ENCOUNTER 2018-06-02 16:40 | Observation (INO) | payer OTHER ==
[2018-06-02] MEDS ORDERED: NS 500 ML IV ONE (16:55)
[2018-06-02] MEDS ORDERED: IOPAMIDOL (ISOVUE 370) 100 ML BTL IV ONE (17:02)
[2018-06-02 17:09] LABS: PLATELET COUNT 160 10^3/uL (150-400)
--- NOTE | 2018-06-02 17:35 | EDPHY ---
H & P Time Seen by Provider: 06/02/18 16:42 HPI/ROS: HPI Right-sided facial droop. 82-year-old female by private vehicle with . Patient has a history of a right-sided CVA with residual expressive aphasia and dysarthria as well as right -sided hemiplegia. No facial involvement. reports he noticed the patient had a right-sided facial droop last night at 10:00 p.m.. This is persisted through today. No other symptoms. ROS: Constitutional: No fever, no chills. As above. Eyes: No discharge. No changes in vision. ENT: No sore throat. No nasal congestion or rhinorrhea. Respiratory: No cough. No shortness of breath. Cardiac: No chest pain, no palpitations. Gastrointestinal: No abdominal pain, no vomiting, no diarrhea. Genitourinary: No hematuria. No dysuria or increased frequency with urination. Musculoskeletal: No back pain. No neck pain. No myalgias or arthralgias. Skin: No rashes. Neurological: No headache. As above. Past medical history: CVA, as above January of 2016, hypertension, hyperlipidemia , breast cancer 25 years ago, right-sided mastectomy. Social history: Nonsmoker. No alcohol. Here with . Physical Exam: General Appearance: Alert, no distress. This patient is responding to questions appropriately and at baseline with her residual dysarthria according to the . This patient appears well-hydrated and well-nourished. Head: Normocephalic atraumatic. Eyes: Pupils equal and round no pallor or injection. No lid edema, erythema or injection. ENT, Mouth: Mucous membranes are moist. The pharyngeal tissues are unremarkable. No edema or swelling. No asymmetry suggestive of abscess. No erythema or exudates. No tongue lacerations or abrasions. Respiratory: There are no retractions, lungs are clear to auscultation with good air movement bilaterally. Cardiovascular: Regular rate and rhythm. No murmur. Gastrointestinal: Abdomen is soft and nontender, no masses, bowel sounds normal. No focal tenderness at McBurney's point. No Pena sign. Neurological: Residual right-sided hemiplegia. Right-sided lower facial droop which is new according to her . Cranial nerves are normal otherwise normal. Skin: Warm and dry, no rashes. Musculoskeletal: Neck is supple and nontender. Extremities are symmetrical. All joints range without pain or impingement. Psychiatric: No agitation. No depression. Database: EKG: EKG time is 6:36 p.m.; EKG shows a narrow complex normal sinus rhythm with a ventricular rate of 56. The [place], QRS, QT intervals are within normal limits. There are no ST-T wave changes indicative of ischemic or injury pattern. No evidence of right heart strain. Interpreted by me. Imaging: CT head without contrast: Age-related and chronic left-sided changes from prior CVA noted. Nothing acute. Results were discussed with staff radiologist Dr. Wale Beltran. CTA of head neck: Nothing acute. Results were discussed with staff radiologist Dr. Wale Beltran. Please see his report for further details. He recommends MRI without contrast further evaluation of possible posterior CVA. Procedures: Emergency department course: Triage vital signs reviewed. She is moderately hypertensive with a systolic blood pressure of 179. Vital signs are otherwise normal. She is afebrile. Patient's presentation is concerning for acute posterior stroke with right- sided lower facial weakness. EKG obtained and reviewed by myself. I-STAT creatinine obtained. Patient will be sent for CT imaging as noted above shortly. The patient was given aspirin in the emergency department. 7:00 p.m., the patient was re-evaluated. Resting comfortably at this time. Right-sided lower facial droop not as pronounced, no other change in her neurologic condition. Results of CT scan discussed with her. We will not be able to obtain an MRI secondary to a bone anchored hearing aid system. I explained to her and her that we would admit admit her to the hospitalist service for further evaluation and Neurology consultation. They endorse. She will be given aspirin in the emergency department. 7:30 p.m., spoke with on-call hospitalist Dr. Freddie Lee. Case was discussed with her in detail. She accepts this patient for admission to the hospitalist service. Neurology paged for consultation. 7:40 p.m., spoke with Dr. Carlos, neurology, case discussed in detail with him. He will consult on this patient after admission to the floor. Patient admitted to the floor in stable condition. Right-sided lower facial droop appears to be resolving. Differential Diagnosis: The differential diagnosis on this patient includes but is not limited to acute CVA. Michel's palsy, Lyme, Guillain-[place] syndrome unlikely. This represents a partial list of diagnoses considered. These considerations are based on history , physical exam, past history, reassessment and diagnostic testing. Smoking Status: Former smoker Constitutional: Initial Vital Signs Temperature (C) 36.7 C 06/02/18 16:49 Heart Rate 61 06/02/18 16:49 Respiratory Rate 16 06/02/18 16:49 Blood Pressure 179/80 H 06/02/18 16:49 O2 Sat (%) 95 06/02/18 16:49 O2 Delivery Mode Room Air Allergies/Adverse Reactions: egg Allergy (Verified 05/07/18 17:04) Unknown Penicillins Allergy (Verified 05/07/18 17:04) Unknown shellfish derived Allergy (Verified 05/07/18 17:04) Unknown Home Medications: Medication Instructions Recorded Cetirizine [ZyrTEC 10 mg (*)] 10 mg PO DAILY PRN 06/14/16 Atorvastatin Calcium [Lipitor 40 40 mg PO HS 04/06/18 mg (*)] Escitalopram Oxalate [Lexapro] 20 mg PO HS 04/06/18 Acetaminophen [Tylenol 325mg (*)] 650 mg PO Q6 PRN tab 04/08/18 Carvedilol [Coreg (*)] 6.25 mg PO HS 04/11/18 Hyoscyamine Sulfate [Levsin, 0.125 mg SL Q4H PRN 04/11/18 Hyomax-Sl 0.125 mg (*)] ARIPiprazole [Abilify 5 mg (*)] 5 mg PO HS 05/24/18 Fluticasone Nasal [Flonase Nasal 1 sprays EACHNARE DAILY PRN 05/24/18 [place]] Gabapentin [Neurontin 300 MG (*)] 300 mg PO HS 05/24/18 Pantoprazole Sodium [Protonix 40mg 40 mg PO HS 05/24/18 (*)] hydrALAZINE [Apresoline] 25 mg PO BIDMEAL 05/24/18 Aspirin EC [Aspirin EC 325 mg (*)] 325 mg PO DAILY #30 tab 06/03/18 Medical Decision Making - Data Points Laboratory Results: Laboratory Results 06/02/18 16:50 06/02/18 16:50 Medications Given: Discontinued Medications Aspirin (Aspirin) 324 mg PO EDNOW ONE Stop: 06/02/18 19:33 Last Admin: 06/02/18 19:57 Dose: 324 mg Enoxaparin Sodium (Lovenox) 40 mg SC DAILY LISSETH Stop: 11/30/18 08:59 Last Admin: 06/03/18 09:22 Dose: 40 mg Hydralazine HCl (Apresoline) 10 mg IVP Q6HRS PRN PRN Reason: sbp > 170 Stop: 11/29/18 23:03 Last Admin: 06/03/18 09:23 Dose: 10 mg Sodium Chloride (Ns) 500 mls @ 500 mls/hr IV EDNOW ONE PRN Reason: Protocol Stop: 06/02/18 17:54 Last Admin: 06/02/18 18:13 Dose: 500 mls Point of Care Test Results: Chemistry 06/02/18 06/02/18 17:10 17:04 POC Sodium 144 mEq/L mEq/L (135-145) POC Potassium 3.9 mEq/L mEq/L (3.3-5.0) POC Chloride 107 mEq/L mEq/L (97-110) POC BUN 19 mg/dL mg/dL (7-23) POC Creatinine 0.7 mg/dL mg/dL (0.6-1.0) POC Glucose 88 mg/dL mg/dL (70-100) POC Troponin I 0.00 ng/mL ng/mL (0.00-0.08) ISTAT H&H 06/02/18 17:04 POC Hgb 13.6 gm/dL gm/dL (12.6-16.3) POC Hct 40 % % (38-47) Departure - Departure Disposition: [facility] Inpatient Acute Clinical Impression: Right-sided facial droop
[2018-06-02 17:37] LABS: PROTIME(PATIENT) 13.4 SEC (12.0-15.0)
[2018-06-02] MEDS ORDERED: ASPIRIN 81 MG CHEWABLE TAB PO ONE (19:32)
[2018-06-02] MEDS ORDERED: ACETAMINOPHEN 325 MG TAB PO PRN (19:44)
[2018-06-02] MEDS ORDERED: HYDROmorphONE/DILAUDID 1 MG/ML INJ IVP PRN (19:44)
[2018-06-02] MEDS ORDERED: HYDROCODONE/APAP 5/325 TAB PO PRN (19:44)
[2018-06-02] MEDS ORDERED: ONDANSETRON DISINTEGRATING 4 MG TAB PO PRN (19:44)
[2018-06-02] MEDS ORDERED: ONDANSETRON 4 MG/2 ML VIAL IVP PRN (19:44)
[2018-06-02] MEDS ORDERED: oxyCODONE IR 5 MG TAB PO PRN (19:44)
[2018-06-02] MEDS ORDERED: PROMETHAZINE HCL 25 MG/ML INJ IVP PRN (19:44)
--- NOTE | 2018-06-02 21:25 | CPEKG ---
Test Reason : OPEN Blood Pressure : / mmHG Vent. Rate : 056 BPM Atrial Rate : 055 BPM P-R Int : 129 ms QRS Dur : 091 ms QT Int : 451 ms P-R-T Axes : 009 -10 038 degrees QTc Int : 436 ms Sinus rhythm Confirmed by Shena Lockett ([id number]) on 06/02/2018 9:24:58 PM Referred By: Confirmed By:Shena Lockett
--- NOTE | 2018-06-02 22:55 | PDGENHP ---
History and Physical - Chief Complaint right facial droop - History of Present Illness 82 yo F with hx of CVA with residual dysarthria and right upper extremity weakness presenting with new onset of right facial droop and worsening drooling. Patient quite dysarthric and therefore the majority of this hx obtained from her son. He notes she has had increased drooling and having intermittent issues with choking on food and cheeking her food on the right side of her face. She did have a recent EGD to evaluate this further and there are plans for a f/u esophagram. Despite this she does continue to eat normal food and her son does not think it has been a major issue. She has had some cough recently but son thinks this is largely baseline. She has not had fever or chills that he is aware of. She did have a recent bout of c diff and an associated facial cellulitis and they were concerned that this infection could be back. She has not had redness or swelling in her face but has had pain on the right side along with the droop. History Information - Allergies/Home Medication List Allergies/Adverse Reactions: egg Allergy (Verified 05/07/18 17:04) Unknown Penicillins Allergy (Verified 05/07/18 17:04) Unknown shellfish derived Allergy (Verified 05/07/18 17:04) Unknown Home Medications: Cetirizine [ZyrTEC 10 mg (*)] 10 mg PO DAILY PRN 06/14/16 [Last Taken 06/01/18] Atorvastatin Calcium [Lipitor 40 mg (*)] 40 mg PO HS 04/06/18 [Last Taken ] Escitalopram Oxalate [Lexapro] 20 mg PO HS 04/06/18 [Last Taken 06/01/18] Carvedilol [Coreg (*)] 6.25 mg PO HS 04/11/18 [Last Taken 06/01/18] Hyoscyamine Sulfate [Levsin, Hyomax-Sl 0.125 mg (*)] 0.125 mg SL Q4H PRN [Last Taken 06/01/18] ARIPiprazole [Abilify 5 mg (*)] 5 mg PO HS 05/24/18 [Last Taken 06/01/18] Fluticasone Nasal [Flonase Nasal [place] (RX)] 1 sprays EACHNARE DAILY PRN [Last Taken 05/31/18] Gabapentin [Neurontin 300 MG (*)] 300 mg PO HS 05/24/18 [Last Taken 06/01/18] Pantoprazole Sodium [Protonix 40mg (*)] 40 mg PO HS 05/24/18 [Last Taken ] hydrALAZINE [Apresoline 25 mg (RX)] 25 mg PO BIDMEAL 05/24/18 [Last Taken 09:00] I have personally reviewed and updated: family history, medical history, social history, surgical history - Past Medical History cancer (breast), CVA, hypertension, hyperlipidemia Additional medical history: recent c diff. recent right facial cellulitis. chronic dysphagia - Surgical History Reports: mastectomy Additional surgical history: bladder lift x 2 - Family History Positive for: non-pertinent - Social History Smoking Status: Former smoker Alcohol Use: None Drug Use: None Additional social history: lives with her son Review of Systems Review of Systems: ROS: 10pt was reviewed & negative except for what was stated in HPI & below Physical Exam Physical Exam: Temp Pulse Resp BP Pulse Ox 36.6 C 50 L 14 172/78 H 91 L 06/02/18 21:23 06/02/18 21:23 06/02/18 21:23 06/02/18 21:23 06/02/18 21:23 Constitutional: no apparent distress, appears nourished Eyes: PERRL Ears, Nose, Mouth, Throat: moist mucous membranes, poor dentition Cardiovascular: regular rate and rhythym, no murmur, rub, or gallop, edema Respiratory: no respiratory distress, no rales or rhonchi Gastrointestinal: normoactive bowel sounds, soft, non-tender abdomen Genitourinary: no bladder tenderness Skin: warm, normal color Musculoskeletal: full muscle strength Neurologic: CN II-XII Intact, other (dysarthria), No facial droop Psychiatric: interacting appropriately, not anxious Lab Data & Imaging Review 06/02/18 16:50 06/02/18 16:50 WBC 5.28 10^3/uL (3.80-9.50) 06/02/18 16:50 RBC 5.12 10^6/uL (4.18-5.33) 06/02/18 16:50 Hgb 13.1 g/dL (12.6-16.3) 06/02/18 16:50 POC Hgb 13.6 gm/dL (12.6-16.3) 06/02/18 17:04 Hct 41.3 % (38.0-47.0) 06/02/18 16:50 POC Hct 40 % (38-47) 06/02/18 17:04 MCV 80.7 fL (81.5-99.8) L 06/02/18 16:50 MCH 25.6 pg (27.9-34.1) L 06/02/18 16:50 MCHC 31.7 g/dL (32.4-36.7) L 06/02/18 16:50 RDW 13.5 % (11.5-15.2) 06/02/18 16:50 Plt Count 160 10^3/uL (150-400) 06/02/18 16:50 MPV 11.1 fL (8.7-11.7) 06/02/18 16:50 Neut % (Auto) 63.8 % (39.3-74.2) 06/02/18 16:50 Lymph % (Auto) 23.5 % (15.0-45.0) 06/02/18 16:50 [place] % (Auto) 6.8 % (4.5-13.0) 06/02/18 16:50 Eos % (Auto) 5.1 % (0.6-7.6) 06/02/18 16:50 Baso % (Auto) 0.6 % (0.3-1.7) 06/02/18 16:50 Nucleat RBC Rel Count 0.0 % (0.0-0.2) 06/02/18 16:50 Absolute Neuts (auto) 3.37 10^3/uL (1.70-6.50) 06/02/18 16:50 Absolute Lymphs (auto) 1.24 10^3/uL (1.00-3.00) 06/02/18 16:50 Absolute Monos (auto) 0.36 10^3/uL (0.30-0.80) 06/02/18 16:50 Absolute Eos (auto) 0.27 10^3/uL (0.03-0.40) 06/02/18 16:50 Absolute Basos (auto) 0.03 10^3/uL (0.02-0.10) 06/02/18 16:50 Absolute Nucleated RBC 0.00 10^3/uL (0-0.01) 06/02/18 16:50 Immature Gran % 0.2 % (0.0-1.1) 06/02/18 16:50 Immature Gran # 0.01 10^3/uL (0.00-0.10) 06/02/18 16:50 PT 13.4 SEC (12.0-15.0) 06/02/18 16:50 INR 1.00 (0.83-1.16) 06/02/18 16:50 APTT 26.4 SEC (23.0-38.0) 06/02/18 16:50 POC Sodium 144 mEq/L (135-145) 06/02/18 17:04 Sodium 142 mEq/L (135-145) 06/02/18 16:50 POC Potassium 3.9 mEq/L (3.3-5.0) 06/02/18 17:04 Potassium 4.5 mEq/L (3.3-5.0) 06/02/18 16:50 POC Chloride 107 mEq/L (97-110) 06/02/18 17:04 Chloride 107 mEq/L (97-110) 06/02/18 16:50 Carbon Dioxide 26 mEq/l (22-31) 06/02/18 16:50 Anion Gap 9 mEq/L (6-14) 06/02/18 16:50 POC BUN 19 mg/dL (7-23) 06/02/18 17:04 BUN 17 mg/dL (7-23) 06/02/18 16:50 Creatinine 0.7 mg/dL (0.6-1.0) 06/02/18 16:50 POC Creatinine 0.7 mg/dL (0.6-1.0) 06/02/18 17:04 Estimated GFR > 60 06/02/18 16:50 Glucose 89 mg/dL (70-100) 06/02/18 16:50 POC Glucose 88 mg/dL (70-100) 06/02/18 17:04 Calcium 9.7 mg/dL (8.5-10.4) 06/02/18 16:50 POC Troponin I 0.00 ng/mL (0.00-0.08) 06/02/18 17:10 Specimen Hemolysis 103 06/02/18 16:50 Urine Color YELLOW 06/02/18 19:15 Urine Appearance CLEAR 06/02/18 19:15 Urine pH 6.0 (5.0-7.5) 06/02/18 19:15 Ur Specific [place] > 1.035 (1.002-1.030) H 06/02/18 19:15 Urine Protein NEGATIVE (NEGATIVE) 06/02/18 19:15 Urine Ketones NEGATIVE (NEGATIVE) 06/02/18 19:15 Urine Blood NEGATIVE (NEGATIVE) 06/02/18 19:15 Urine Nitrate NEGATIVE (NEGATIVE) 06/02/18 19:15 Urine Bilirubin NEGATIVE (NEGATIVE) 06/02/18 19:15 Urine Urobilinogen NEGATIVE EU (0.2-1.0) 06/02/18 19:15 Ur Leukocyte Esterase NEGATIVE (NEGATIVE) 06/02/18 19:15 Ur Culture Indicated? NOT INDICATED (NI) 06/02/18 19:15 Urine Glucose NEGATIVE (NEGATIVE) 06/02/18 19:15 Visualized and Interpreted Chest x-ray results: Yes Chest X-Ray results: no infiltrate, other (bronchitis) Visualized and Interpreted imaging results: Yes Interpretation: head ct/head/neck CTA: no clear acute change Visualized and Interpreted EKG results: Yes EKG Interpretation: Positive for: normal sinsus rhythm Assessment & Plan Assessment: 82 yo F with prior CVA with residual dysarthria and right weakness presenting with right facial weakness and pain # right facial droop and pain: patient notes both that her face seems newly asymetrical but also that there is pain present, did have a right facial cellulitis in March, but currently no erythema or other changes to suggest infection. Unable to perform MRI due to cochlear implants but on head/neck ct/ cta no clear new stroke. Neuro consulted. Could be unmasking of old stroke sxs but no clear infection or metabolic derangement to explain that # dysphagia: with hx concerning for recurrent aspiration, no clear pna on cxr, will ask ASSOCIATE EMBALMER/FUNERAL DIRECTOR to evaluate and perform esophagram # uncontrolled htn: will continue hydralazine and carvedilol and monitor, may need additional medications # recent c diff: without complaints of recent diarrhea # cva: with residual right sided weakness and dysarthria, pt/ot/passport support manager to eval # IP status Patient new to my care. Old records reviewed and summarized as above. Care plan reviewed with ER doctor. Further hx obtained from patients son present at bedside.
[2018-06-02] MEDS ORDERED: hydrALAZINE 20 MG/ML VIAL IVP PRN (23:04)
[2018-06-03 04:20] LABS: PLATELET COUNT 134 10^3/uL (150-400)
[2018-06-03] MEDS ORDERED: ENOXAPARIN 40 MG/0.4 ML SYR SC SCH (09:00)
--- NOTE | 2018-06-03 11:05 | GCON ---
NEUROLOGY CONSULT DATE OF CONSULTATION: 06/03/2018 REFERRING PHYSICIAN: Freddie Lee MD CHIEF COMPLAINT: Right facial weakness. HISTORY OF PRESENT ILLNESS: The patient is a very pleasant 82-year-old lady who has a history of significant left hemisphere stroke in January 2016. We do not have the records of this event in terms of mechanism. I do not see if she was taking any type of antiplatelet as an outpatient. She has chronic significant right-sided hemiplegia of face, arm, and leg with dysarthria, drooling, and food pooling in the past. Her physical therapist, who saw her last time, corroborated that these findings are chronic. Apparently, they saw some increased food pooling and drooling and brought her to the emergency department. Perhaps a little bit more right facial weakness on top of her chronic. Not clear. She had a head CT in the ED, which showed extensive left frontotemporal encephalomalacia. She also likely has arachnoid cyst or volume loss anterior to the stroke. Finally, there is a stable right parietal meningioma. She had an angio of the head and neck, which showed no acute vascular findings. Temporary system was attempted, but could not be done due to the patient's level of dysarthria. For past medical history, social history, family history, home medications, and allergies, see Dr. Lee's H and P. PHYSICAL EXAMINATION: VITAL SIGNS: Blood pressure is 150 to 170s over 60 to 70 , afebrile at 36.6, heart rate 70s. NEUROLOGIC: The patient is awake, alert, very pleasant. She has significant dysarthria. She has right-sided hemiplegia. IMPRESSION/PLAN: 1. Chronic left hemisphere stroke. 2. Left hemisphere cyst (arachnoid cyst or related to encephalomalacia). 3. Right parietal meningioma. Overall, the patient's clinical history is not entirely clear. She appears to be at her baseline in terms of previous documentation describing her chronic deficits. Certainly, she may have had some increase of chronic deficits in the setting of aging, dehydration, fatigue etc. Angiography of the head and neck showed no acute vascular findings. The head CT without contrast does not show any acute findings or hemorrhage. Chronic findings as detailed above. She cannot get an MRI due to an embedded hearing aid. I recommend we review whether she was truly on an anti-platelet or not at home. If she was not, I would initiate baby aspirin daily. If she is on baby aspirin, we could increase her to 325 mg daily or switch her to Plavix. Discussed at length with the patient and primary team. I also recommend outpatient consultation with Neurosurgery regarding her meningioma. No further recommendations now. Will continue to follow this very pleasant patient as needed while in the hospital. Please do not hesitate to call if there are any questions or changes in neurologic status. Forty-five total minutes floor time reviewing extensive inpatient records, current inpatient records, imaging, counseling, and coordination of care. /[id number]/MODL MTDD
[2018-06-03 11:31] VITALS: BP 140/80
[2018-06-03] MEDS ORDERED: FLUTICASONE NASAL 120 SPRAYS/16 GM MDI EACHNARE PRN (12:25)
[2018-06-03] MEDS ORDERED: ASPIRIN EC 325 MG TAB PO SCH (12:45)
--- NOTE | 2018-06-03 12:55 | PDIAF ---
- Diagnosis Diagnosis: rule out stroke Code Status: Do Not Resuscitate - Medication Management Discharge Medications: electronically signed and located in the Home Medication List. - Orders Services needed: Home Care, Registered Nurse, Physical Therapy, Occupational Therapy, Speech Language Pathologist Home Care Face to Face: I certify that this patient was under my care and that I had the required [id number] encounter meeting the encounter requirements on the discharge day. My findings support the fact that the patient is homebound as defined in Home Care Face to Face Continued: CMS Chapter 7 Medicare Benefits Manual 30.1.1 , The condition of the patient is such that there exists a normal inability to leave home and consequently, leaving home would require a considerable and taxing effort. Isolation Type: None Diet Texture: Regular Texture Diet, Thin Liquids, Meds Whole w/Liquids Additional Instructions: Increase aspirin from 81mg to 325mg daily Follow-up with neurosurgery regarding incidental finding of meningioma on CT scan Close outpatient monitoring of high blood pressure as may need medications increased. - Follow Up Care Current Providers and Referrals: Abigail Logan MD [Primary Care Provider] - As per Instructions Walter Mccann MD [Medical Doctor] -
--- NOTE | 2018-06-03 13:48 | ASDISCHSUM ---
Discharge Information Plan Status:Home with Home Health Medically Cleared to Leave:06/02/2018 Discharge Date:06/03/2018 01:42 PM CM D/C Disposition: ADT D/C Disposition:Home Health Service Projected Discharge Date:06/03/2018 11:00 AM Transportation at D/C: Discharge Delay Reason: Follow-Up Date:06/03/2018 11:00 AM Discharge Slot: Final Diagnosis: Placement Information Referral Type:*Home Health Care Services Referral ID:[id number] Provider Name:[facility] (formerly [facility]) [address] 2: City:[place] Selection Factors: State:[place] Patient Contact Information Contact Name:GABRIELLE Relationship:Daughter Address:[address] Work Phone: [facility]:[place] Alternate Phone: State/Zip Code:[place] [address] Email: Financial Information Financial Class:Medicare Advantage Plans Primary Plan Desc:[employer] MEDICARE ADV Primary Plan Number:[id number] Secondary Plan Desc: Secondary Plan Number: Assessment Information LACE LACE Length of stay for Answers: 1 day current admission Acuity / Level of Answers: No Care: Did the patient have an inpatient admission? Comorbidities - select Answers: Cerebrovascular disease all that apply (CVA, TIA, aneurysms, vasc ular dementia) Opioid dependence / Chronic pain Other Notes: HTN; HLD; Hx of breast cancer # of Emergency department Answers: 5-8 visits in the last 6 months Score: 11 Date Signed: 06/03/2018 01:45 PM Electronically Signed By:KELBY Carrillo [facility] CM Progress Note CM Note CM Note Notes: Pts case discussed in tx rounds. Pt is a 82 y/o female admitted for right lower facial droop. Pt has been seen by neurology. Neurology reports that this is pts baseline. Laura from [facility] stopped by and reported that pt is current w/ them. DC orders sent. Pts family will be bringing her home. CM available for changes. Plan: [facility]; PT, OT, RN, [facility] Date Signed: 06/03/2018 01:47 PM Electronically Signed By:KELBY Carrillo Intervention Information
[2018-06-03] MEDS ORDERED: hydrALAZINE 25 MG TAB PO SCH (18:00)
[2018-06-03] MEDS ORDERED: ESCITALOPRAM OXALATE 10 MG TAB PO SCH (21:00)
[2018-06-03] MEDS ORDERED: ARIPiprazole 5 MG TAB PO SCH (21:00)
[2018-06-03] MEDS ORDERED: CARVEDILOL 6.25 MG TAB PO SCH (21:00)
[2018-06-03] MEDS ORDERED: PANTOPRAZOLE SODIUM 40 MG TAB PO SCH (21:00)
[2018-06-03] MEDS ORDERED: GABAPENTIN 300 MG CAP PO SCH (21:00)
[2018-06-03] MEDS ORDERED: ATORVASTATIN CALCIUM 40 MG TAB PO SCH (21:00)
--- NOTE | 2018-06-04 05:36 | GDS ---
DISCHARGE DIAGNOSES: 1. Right facial droop. 2. History of severe left hemispheric stroke with chronic severe right hemiplegia of the face, arm, and leg with dysarthria and drooling at baseline. 3. Meningioma. 4. Uncontrolled hypertension. 5. Dysphagia. HISTORY: The patient is an 82-year-old female with a history of a previous severe stroke with residu al right-sided weakness, right facial droop, and severe dysarthria. She presented to the hospital fo r increased drooling and possible increased choking on her food. She was admitted to the hospital un jermaine observation and seen in consultation with Neurology. CT angiogram of the head and neck were unre markable. Head CT showed extensive left frontal temporoparietal encephalomalacia consistent with her old infarct. Incidentally noted was a right parietal meningioma. She is unable to get an MRI due t o embedded hearing aid. Neurology consultation with Dr. Carlos, as well as consultation with speech therapy, who has seen her in the past, felt that most of her deficits were consistent with chronic deficits seen in the past. Sp eech therapy cleared her for oral intake. They did recommend a video esophagram, however, the patien t refused. She did not show any signs of aspiration pneumonia, and she has been able the eat success fully despite these deficits at home. In case there was a slight event, Dr. Carlos recommended increasi ng her aspirin from 81 mg to 325 mg p.o. daily. He also recommended outpatient followup with Neurosu allison regarding her meningioma. At the time of discharge, she was felt to be near baseline. She will return home where she lives wit h her daughter. Her blood pressures are uncontrolled and that may be contributing to her waxing and waning neurologic symptoms. Would follow this closely as an outpatient and consider up titration of medications. DISCHARGE MEDICATIONS: Please see computer record for full detailed list. New medications: Aspirin increased from 81 mg p.o. daily to 325 mg p.o. daily. ADDITIONAL DISCHARGE INSTRUCTIONS: 1. Follow up with Neurosurgery regarding incidental finding of meningioma on CT scan. 2. Close outpatient monitoring of high blood pressures and may need additional medication if indicat ed. 3. Home health arranged for PT, OT, RN, and speech therapy. Patient was seen and examined by me on the day of discharge. /[id number]/MODL
== END 2018-06-03 13:42 | disposition home health service (06) ==
LOC: F2W 20:58
PROVIDERS: ADMIT Internal Medicine; ATTEND Internal Medicine
DX: R29.810 Facial weakness (principal); E86.9 Volume depletion, unspecified; I69.351 Hemiplegia and hemiparesis following cerebral infarction affecting right dominant side; C70.9 Malignant neoplasm of meninges, unspecified; I10 Essential (primary) hypertension; R13.10 Dysphagia, unspecified; Z87.891 Personal history of nicotine dependence; Z66 Do not resuscitate
CPT/HCPCS: 70450; 70496; 70498; 71046; 92610; 93005; 96361; 96372; 96374; 97161; 97165; 99285; G0378; G8978; G8979; G8987; G8988; J0360; J1650; Q9967; 82435-PO; 82565-PO; 82947-PO; 84132-PO; 84295-PO; 84484-PO; 84520-PO; 85014-PO